=== PATIENT | male | born 1940 | race Caucasian/White ===

== ENCOUNTER 2017-02-04 23:34 | Inpatient (IN) | payer MEDICARE, BC ==
[~2017-02-04] VITALS: Ht 165.1 cm; Wt 70.0 kg
[~2017-02-04 23:34] MED LIST: ALLO100 PO; ALPR-138 PO; AMOX500T PO; CARV6.25 PO; COLC1TAB7 PO; COUM5TAB PO; FERR324T4 PO; FOSI10TA4 PO; FURO1TAB93 PO; GEMF600 PO; ISOS40TA4 PO; LANO0.2510 PO; PRAV40TA PO; SOTA120T PO
[2017-02-04 23:54] VITALS: BP 112/74; PULSE 75; RESP 28; TEMP 96; O2SAT 97
[2017-02-05] VITALS (10 sets, daily range): BP systolic 93–109; BP diastolic 55–62; PULSE 59–78; RESP 16–28; TEMP 96.4–98.9; O2SAT 93–99
[2017-02-05 00:21] LABS: AUTOMATED NEUTROPHIL # 8.9 TH/MM3 (1.8-7.7); BASOPHIL # 0.1 TH/MM3 (0-0.2); BASOPHIL % 0.5 % (0.0-2.0); EOSINOPHIL # 0.1 TH/MM3 (0-0.4); EOSINOPHIL % 1.2 % (0.0-4.0); HEMATOCRIT 47.8 % (39.0-51.0); HEMO FLAGS DIFF FINAL; LYMPH % 8.1 % (9.0-44.0); LYMPHOCYTE # 0.9 TH/MM3 (1.0-4.8); MEAN CELL VOLUME 92.5 FL (80.0-100.0); MEAN CORPUSCULAR HEMOGLOBIN 30.9 PG (27.0-34.0); MEAN CORPUSCULAR HGB CONC 33.5 % (32.0-36.0); MONO % 7.6 % (0.0-8.0); NEUT % 82.6 % (16.0-70.0); PLATELET COUNT 263 TH/MM3 (150-450); RED BLOOD COUNT 5.17 MIL/MM3 (4.50-5.90); RED CELL DISTRIBUTION WIDTH 17.4 % (11.6-17.2); WHITE BLOOD COUNT 10.8 TH/MM3 (4.0-11.0)
[2017-02-05 00:29] LABS: BLOOD, URINE NEG (NEG); COMMENT (UR) CULT NOT INDICATED; CULTURE IF INDICATED CULT NOT INDICATED; GLUCOSE,URINE NEG (NEG); HYALINE CAST, URINE 6 /lpf (RARE); KETONE, URINE NEG (NEG); NITRITE,URINE NEG (NEG); PH, URINE 5.5 (5.0-8.5); SQUAMOUS EPITHELIAL CELL URINE <1 /hpf (0-5); URINE COLOR YELLOW (YELLW/STRAW)
[2017-02-05 00:32] LABS: APTT (PATIENT) 42.9 SEC (24.3-30.1); INTERNATIONAL NORMALIZED RATIO 2.8 RATIO; PROTHROMBIN TIME - PATIENT 32.5 SEC (9.8-11.6)
[2017-02-05 00:34] LABS: BLOOD GAS BASE EXCESS -6.2 mmol/L (-2-2); BLOOD GAS CARBOXYHEMOGLOBIN 1.6 % (0-4); BLOOD GAS HCO3 18 mmol/L (22-26); BLOOD GAS METHEMOGLOBIN 0.5 % (0-2); BLOOD GAS O2 HGB SATURATION 95 % (90-100); BLOOD GAS OXYGEN CONTENT 21.2 Vol % (12.0-20.0); BLOOD GAS PCO2 33 mmHg (38-42); BLOOD GAS PO2 101 mmHG (61-120); BLOOD GAS TOTAL HGB 15.8 G/DL (12.0-16.0); CRITICAL VALUE NO; DRAW SITE RT RADIAL; LITER FLOW 4 L/M; NUMBER OF ARTERIAL PUNCTURES 1; OXYGEN DEVICE NASAL CANNULA; STAT YES; TEMP CORR TO 98.6; ULNAR PULSE PRESENT
[2017-02-05 00:41] LABS: ALKALINE PHOSPHATASE 101 U/L (45-117); CREATINE KINASE 131 U/L (39-308); TOTAL BILIRUBIN ADULT 0.6 MG/DL (0.2-1.0)
[2017-02-05 00:44] LABS: ALT (GPT) 15 U/L (12-78); ANION GAP 7 MEQ/L (5-15); AST (GOT) 31 U/L (15-37); BICARBONATE 23.2 MEQ/L (21.0-32.0); BLOOD UREA NITROGEN 34 MG/DL (7-18); CHLORIDE 98 MEQ/L (98-107); GLOMERULAR FILTRATION RATE 43 ML/MIN (>89); POTASSIUM 5.3 MEQ/L (3.5-5.1); SODIUM (NA) 128 MEQ/L (136-145)
--- NOTE | 2017-02-05 01:17 | RADRPT ---
EXAM DATE/TIME: 02/05/2017 01:01 [facility] COMPARISON: No previous studies available for comparison. INDICATIONS : Trauma; fall. RADIATION DOSE: 56.35 CTDIvol (mGy) MEDICAL HISTORY : Carcinoma, esophageal. SURGICAL HISTORY : Pacemaker. ENCOUNTER: Initial ACUITY: 1 day PAIN SCALE: 5/10 LOCATION: Bilateral cranial TECHNIQUE: Multiple contiguous axial images were obtained of the head. Using automated exposure control and adj ustment of the mA and/or kV according to patient size, radiation dose was kept as low as reasonably a chievable to obtain optimal diagnostic quality images. FINDINGS: There is atrophy and patchy periventricular white matter disease. No signs of acute infarct, hemorrha ge, or mass. Chronic left maxillary sinus mucosal disease with desiccated secretions. No fractures. CONCLUSION: No acute disease. Prashanth Ca MD on February 05, 2017 at 1:15 Board Certified Radiologist. This report was verified electronically.
--- NOTE | 2017-02-05 01:17 | RADRPT ---
EXAM DATE/TIME: 02/05/2017 00:30 [facility] COMPARISON: No previous studies available for comparison. INDICATIONS : Shortness of breath from a fall. MEDICAL HISTORY : None. SURGICAL HISTORY : Pacemaker. ENCOUNTER: Initial ACUITY: 1 day PAIN SCORE: Non-responsive. LOCATION: Bilateral chest FINDINGS: Cardiomegaly. Pacer/ICD device from a left subclavian transvenous approach noted. 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 The lungs are clear. Left atrial enlargement is suspected. CONCLUSION: No acute disease. Prashanth Ca MD on February 05, 2017 at 1:15 Board Certified Radiologist. This report was verified electronically.
--- NOTE | 2017-02-05 01:18 | RADRPT ---
EXAM DATE/TIME: 02/05/2017 00:33 [facility] COMPARISON: No previous studies available for comparison. INDICATIONS : Fall trauma. MEDICAL HISTORY : None. SURGICAL HISTORY : Pacemaker. ENCOUNTER: Initial ACUITY: 1 day PAIN SCORE: Non-responsive. LOCATION: Bilateral pelvis FINDINGS: Aortic and iliac artery calcifications are seen. A temperature probe overlies the rectum. No obvious fractures. CONCLUSION: No obvious fractures. Prashanth Ca MD on February 05, 2017 at 1:16 Board Certified Radiologist. This report was verified electronically.
--- NOTE | 2017-02-05 01:39 | RADRPT ---
EXAM DATE/TIME: 02/05/2017 01:01 [facility] COMPARISON: No previous studies available for comparison. INDICATIONS : Trauma; fall. RADIATION DOSE: 34.73 CTDIvol (mGy) MEDICAL HISTORY : Carcinoma, esophageal. SURGICAL HISTORY : Pacemaker. ENCOUNTER: Initial ACUITY: 1 day PAIN SCALE: 5/10 LOCATION: Bilateral neck TECHNIQUE: Volumetric scanning of the cervical spine was performed. Multiplanar reconstructions in the sagittal, coronal and oblique axial planes were performed. Using automated exposure control and adjustment o f the mA and/or kV according to patient size, radiation dose was kept as low as reasonably achievable to obtain optimal diagnostic quality images. FINDINGS: There is previous intervertebral fusion at C5-6 with severe disc space narrowing, endplate sclerosis and osteophytosis at C6-7. [id number] disc space narrowing at C7-T1 with 1.7 mm anterolisthes is of C7 on T1 noted. [id number] multilevel facet hypertrophic changes are seen. There is no ob lique fracture of the anterior inferior corner of the C4 vertebral body. Prevertebral soft tissue swe lling is seen. There is slight relative widening of C4-5 facet joints. At C3-4 a central disc protrus ion is noted abutting the cord with moderate canal narrowing. Severe left foraminal stenosis. C4-5 mi ld diffuse disc bulging with mild canal narrowing. At C5-6 moderate canal stenosis. Uncovertebral hyp ertrophy and severe bilateral foraminal narrowing. CONCLUSION: There is an acute teardrop fracture of the anterior-inferior corner of the C4 vertebral body. There i s no loss of vertebral body height. There is questionable relative widening of the C4-5 facet joints right greater than left. Associated prevertebral soft tissue swelling. Prashanth Ca MD on February 05, 2017 at 1:29 Board Certified Radiologist. This report was verified electronically.
--- NOTE | 2017-02-05 03:09 | PD ---
HPI Chief Complaint: Fall Time Seen by Provider: 23:40 Travel History International Travel<30 days: No Contact w/Intl Traveler<30days: No Traveled to known affect area: No History of Present Illness HPI 77 years old male was brought in by EMS after a fall from home. Patient was found at home on the floor lethargic. C-collar was applied to the neck and patient was transported to the ED for evaluation. Patient had O2 saturation at the scene was in the 80s. Unable to get information from the patient. Patient has history of CAD status post AICD placement. Patient has history hypertension and dyslipidemia. Patient has history of anxiety and gout. PFSH Past Medical History Anxiety: Yes Heart Rhythm Problems: Yes (PACER/AICD) High Cholesterol: Yes Coronary Artery Disease: Yes Diminished Hearing: No Gout: Yes Hypertension: Yes Immunizations Current: Yes Past Surgical History Abdominal Surgery: Yes (SURGERY ON HIS ESPOPHAGUS) AICD: Yes (UNKNOWN TOLL OPERATOR) Pacemaker: Yes Social History Alcohol Use: Yes (OCCASSIONAL) Tobacco Use: No Substance Use: No Allergies-Medications (Allergen,Severity, Reaction): Coded Allergies: Codeine (Verified Allergy, Severe, 08/11/09) Reported Meds & Prescriptions Reported Meds & Active Scripts Active Active Prescriptions or Reported Medications Unobtainable Review of Systems General / Constitutional: No: Fever Eyes: No: Visual changes HENT: No: Headaches Cardiovascular: No: Chest Pain or Discomfort Respiratory: No: Shortness of Breath Gastrointestinal: No: Abdominal Pain Genitourinary: No: Dysuria Musculoskeletal: No: Pain Skin: No Rash Neurologic: No: Weakness Psychiatric: No: Depression Endocrine: No: Polydipsia Hematologic/Lymphatic: No: Easy Bruising Physical Exam Narrative GENERAL: Well-nourished, well-developed patient. SKIN: Warm and dry. HEAD: Normocephalic. Patient has abrasion across the forehead about 6 cm in length. EYES: No scleral icterus. No injection or drainage. Pupils 2 mm equal reactive. NECK: Supple, trachea midline. No JVD or lymphadenopathy. CARDIOVASCULAR: Regular rate and rhythm without murmurs, gallops, or rubs. RESPIRATORY: Breath sounds equal bilaterally. No accessory muscle use. GASTROINTESTINAL: Abdomen soft, non-tender, nondistended. MUSCULOSKELETAL: No cyanosis, or edema. BACK: Nontender without obvious deformity. No CVA tenderness. Neurologic exam: Patient is lethargic. Patient answered questions with yes or no answers. Patient moves all extremity minimally. No obvious focal neurological deficit. Data Data Last Documented VS Vital Signs Date Time Temp Pulse Resp B/P Pulse Ox O2 Delivery O2 Flow Rate FiO2 02/05/17 00:30 96.4 74 28 102/55 99 Nasal Cannula 4 Orders Electrocardiogram (02/04/17 23:41) Complete Blood Count With Diff (02/04/17 23:41) Comprehensive Metabolic Panel (02/04/17 23:41) Creatine Kinase (Cpk) (02/04/17 23:41) Troponin I (02/04/17 23:41) B-Type Natriuretic Peptide (02/04/17 23:41) Prothrombin Time / Inr (Pt) (02/04/17 23:41) Act Partial Throm Time (Ptt) (02/04/17 23:41) Arterial Blood Gas (Abg) (02/04/17 23:41) Blood Culture (02/04/17 23:41) Urinalysis - C+S If Indicated (02/04/17 23:41) Chest, Single Ap (02/04/17 23:41) Ct Brain W/O Iv Contrast(Rout) (02/04/17 23:41) Pelvis, Ap Only (Routine) (02/04/17 23:41) Iv Access Insert/Monitor (02/04/17 23:41) Ecg Monitoring (02/04/17 23:41) Oximetry (02/04/17 23:41) Urinary Catheter Insert/Apply (02/04/17 23:41) Ct Cerv Spine W/O Contrast (02/04/17 23:41) Lactic Acid (02/04/17 23:43) Labs Laboratory Tests Test 02/04/17 02/04/17 02/05/17 23:46 23:59 00:24 White Blood Count 10.8 TH/MM3 Red Blood Count 5.17 MIL/MM3 Hemoglobin 16.0 GM/DL Hematocrit 47.8 % Mean Corpuscular Volume 92.5 FL Mean Corpuscular Hemoglobin 30.9 PG Mean Corpuscular Hemoglobin 33.5 % Concent Red Cell Distribution Width 17.4 % Platelet Count 263 TH/MM3 Mean Platelet Volume 9.2 FL Neutrophils (%) (Auto) 82.6 % Lymphocytes (%) (Auto) 8.1 % Monocytes (%) (Auto) 7.6 % Eosinophils (%) (Auto) 1.2 % Basophils (%) (Auto) 0.5 % Neutrophils # (Auto) 8.9 TH/MM3 Lymphocytes # (Auto) 0.9 TH/MM3 Monocytes # (Auto) 0.8 TH/MM3 Eosinophils # (Auto) 0.1 TH/MM3 Basophils # (Auto) 0.1 TH/MM3 CBC Comment DIFF FINAL Differential Comment Prothrombin Time 32.5 SEC Prothromb Time International 2.8 RATIO Ratio Activated Partial 42.9 SEC Thromboplast Time Sodium Level 128 MEQ/L Potassium Level 5.3 MEQ/L Chloride Level 98 MEQ/L Carbon Dioxide Level 23.2 MEQ/L Anion Gap 7 MEQ/L Blood Urea Nitrogen 34 MG/DL Creatinine 1.56 MG/DL Estimat Glomerular Filtration 43 ML/MIN Rate Random Glucose 141 MG/DL Lactic Acid Level 1.3 mmol/L Calcium Level 8.1 MG/DL Total Bilirubin 0.6 MG/DL Aspartate Amino Transf 31 U/L (AST/SGOT) Alanine Aminotransferase 15 U/L (ALT/SGPT) Alkaline Phosphatase 101 U/L Total Creatine Kinase 131 U/L Troponin I 0.03 NG/ML B-Type Natriuretic Peptide 690 PG/ML Total Protein 5.0 GM/DL Albumin 1.8 GM/DL Urine Color YELLOW Urine Turbidity CLEAR Urine pH 5.5 Urine Specific [place] 1.016 Urine Protein NEG mg/dL Urine Glucose (UA) NEG mg/dL Urine Ketones NEG mg/dL Urine Occult Blood NEG Urine Nitrite NEG Urine Bilirubin NEG Urine Urobilinogen 2.0 MG/DL Urine Leukocyte Esterase NEG Urine RBC 1 /hpf Urine WBC LESS THAN 1 /hpf Urine Squamous Epithelial <1 /hpf Cells Urine Hyaline Casts 6 /lpf Microscopic Urinalysis Comment CULT NOT INDICATED Blood Gas Puncture Site RT RADIAL Blood Gas Patient Temperature 98.6 Blood Gas HCO3 18 mmol/L Blood Gas Base Excess -6.2 mmol/L Blood Gas Oxygen Saturation 95 % Arterial Blood pH 7.36 Arterial Blood Partial 33 mmHg Pressure CO2 Arterial Blood Partial 101 mmHG Pressure O2 Arterial Blood Oxygen Content 21.2 Vol % Arterial Blood 1.6 % Carboxyhemoglobin Arterial Blood Methemoglobin 0.5 % Blood Gas Hemoglobin 15.8 G/DL Oxygen Delivery Device NASAL CANNULA Blood Gas Liter Flow 4 L/M MDM Medical Decision Making Medical Screen Exam Complete: Yes Emergency Medical Condition: Yes Interpretation(s) Last Impressions Pelvis X-Ray 02/04/172340 Signed Impressions: Service Date/Time: January 00:33 - CONCLUSION: No obvious fractures. Prashanth Ca MD Head CT 02/04/172340 Signed Impressions: Service Date/Time: January 01:01 - CONCLUSION: No acute disease. Prashanth Ca MD Chest X-Ray 02/04/172340 Signed Impressions: Service Date/Time: January 00:30 - CONCLUSION: No acute disease. Prashanth Ca MD Cervical Spine CT 02/04/172340 Signed Impressions: Service Date/Time: January 01:01 - CONCLUSION: There is an acute teardrop fracture of the anterior-inferior corner of the C4 vertebral body. There is no loss of vertebral body height. There is questionable relative widening of the C4-5 facet joints right greater than left. Associated prevertebral soft tissue swelling. Prashanth Ca MD 3 AM. CBC within normal limit. Sodium 128. Potassium 5.3. BUN 34. Creatinine 1.56. GFR 43. At the acid 1.3. Calcium 8.1. BNP 690. INR 2.8. UA is negative. Differential Diagnosis Differential diagnosis including abrasion, closed head injury, intracranial hemorrhage, electrolyte imbalance, dehydration, TIA, CVA, sepsis. Narrative Course 77 years old male was brought in by EMS after a fall from home. I spoke with Dr. Owens and Dr. Crocker. Patient will be admitted to Dr. Owens and consult Dr. Crocker. Diagnosis Primary Impression: Fracture of cervical vertebra without spinal cord injury Qualified Code: S12.9XXA - Fracture of cervical vertebra without spinal cord injury, initial encounter Additional Impression: Forehead abrasion Qualified Code: S00.81XA - Forehead abrasion, initial encounter Admitting Information Admitting Physician Requests: Admit Scripts Unable to Obtain Active Prescriptions or Reported Meds Bravo Jama MD Feb 05, 2017 03:09
[2017-02-05] MEDS ORDERED: ONDANSETRON HCL 4 MG/2 ML VIAL IV PRN ×2 (03:15→08:45)
[2017-02-05] MEDS ORDERED: SODIUM CHLORIDE 0.9% FLUSH 10 ML FLUSH IVF PRN (03:15)
--- NOTE | 2017-02-05 07:54 | MH ---
cc: MAZIN SAVAGE MD DATE OF ADMISSION 02/05/2017 ADMITTING PHYSICIAN Mazin Savage MD, Trauma Surgeon ADMITTING DIAGNOSIS Fall at home, fracture of C4 without neurogenic shock. HISTORY OF PRESENT DISEASE This is a 77-year-old male who was brought by EMS. He fell on the floor apparently. He came in a C-collar seen by the emergency room physician and I was called upon completion of the workup. PAST MEDICAL HISTORY 1. Coronary artery disease 2. Hypertension 3. Supraventricular arrhythmias or fissure, the patient had placement of a defibrillator. PAST SURGICAL HISTORY 1. Defibrillator placement 2. Some sort of esophageal surgery, I am not sure what, possibly distal esophagus. SOCIAL HISTORY The patient does not smoke and drinks socially. MEDICATIONS I do not have a list of medications and the patient does not know what he is on. PHYSICAL EXAM This is a 77-year-old male in no acute distress. HEAD, EYES, EARS, NOSE, AND THROAT: Normocephalic. Trauma to the head consistent with a 3 inches bruise over the forehead with abrasions where he fell. There was some bleeding from the nose but this was apparently controlled before the patient got here. Pupils equally reactive. Extraocular muscles intact. NECK: The patient has a supple neck with some degree of stiffness consistent with the age. No masses are noted and actually the patient is not tender on palpation of the neck. CHEST: Bilateral breath sounds. HEART: Regular rhythm, previously noted pacemaker/defibrillator noted in left chest. ABDOMEN: Soft, no rebound, guarding or masses. EXTREMITIES: The patient has bilateral femoral pulses, bilateral dorsalis pedis pulses by palpation. Popliteal by Doppler. NEUROLOGIC: Grossly the patient is intact. C2-C12 are normal and he is awake and alert, slightly slow to answer, seems to be somewhat anxious. IMPRESSION A 77-year-old male was severe degenerative disease of the spine and superior teardrop fracture of C4. This appeared to be mostly chronic prevertebral swelling according to the radiologist. The patient will be admitted to floor for observation. Neurosurgery is consulted. Mazin ALLISON/MAGDA /7:28 AM 7:40 AM
[2017-02-05] MEDS ORDERED: SODIUM CHLORIDE 0.9% FLUSH 10 ML FLUSH IV FLUSH PRN (08:45)
[2017-02-05] MEDS ORDERED: ACETAMINOPHEN 325 MG TAB PO PRN (08:45)
[2017-02-05] MEDS ORDERED: ENALAPRILAT 1.25 MG/ML VIAL IV PRN (08:45)
--- NOTE | 2017-02-05 08:59 | PD.CONS ---
[facility] Service Neurosurg Consult Requested By Trauma surgeon Reason for Consult cervical fracture Primary Care Physician Vikki Hatfield MD History of Present Illness This is a 77-year-old male with history of Coronary artery disease, arterial Hypertension, Supraventricular arrhythmias status post placement of a defibrillator who was brought by to [facility] by EMS. Apparently he fell on the floor and developed neck pain. Mo LOC. No seizure. No tongue bitting, No incontinence of stool or urine He came in a C-collar. Moving all 4 extreities. No sensory loss. Severe neck pain. CT showed a teardrop fracture. Neurosurgical consultation was requested. Review of Systems Constitutional: DENIES: Diaphoretic episodes, Fatigue, Fever, Weight gain, Weight loss, Chills, Dizziness, Change in appetite, Night Sweats Endocrine: DENIES: Heat/cold intolerance, Polydipsia, Polyuria, Polyphagia Eyes: DENIES: Blurred vision, Diplopia, Eye inflammation, Eye pain, Vision loss , Photosensitivity, Double Vision Ears, nose, mouth, throat: DENIES: Tinnitus, Hearing loss, Vertigo, Nasal discharge, Oral lesions, Throat pain, Hoarseness, Ear Pain, Running Nose, Epistaxis, Sinus Pain, Toothache, Odynophagia Respiratory: DENIES: Apneas, Cough, Snoring, Wheezing, Hemoptysis, Sputum production, Shortness of breath Cardiovascular: DENIES: Chest pain, Palpitations, Syncope, Dyspnea on Exertion , PND, Lower Extremity Edema, Orthopnea, Claudication Gastrointestinal: DENIES: Abdominal pain, Black stools, Bloody stools, Constipation, Diarrhea, Nausea, Vomiting, Difficulty Swallowing, Anorexia Genitourinary: DENIES: Sexual dysfunction, Urinary frequency, Urinary incontinence, Urgency, Hematuria, Dysuria, Nocturia, Penile Discharge, Testicular Pain, Testicular Swelling Musculoskeletal: COMPLAINS OF: Neck pain, DENIES: Joint pain, Muscle aches, Stiffness, Joint Swelling, Back pain Integumentary: DENIES: Abnormal pigmentation, Nail changes, Pruritus, Rash Hematologic/lymphatic: DENIES: Bruising, Lymphadenopathy Immunologic/allergic: DENIES: Eczema, Urticaria Neurologic: DENIES: Abnormal gait, Headache, Localized weakness, Paresthesias, Seizures, Speech Problems, Tremor, Poor Balance Psychiatric: DENIES: Anxiety, Confusion, Mood changes, Depression, Hallucinations, Agitation, Suicidal Ideation, Homicidal Ideation, Delusions Past Family Social History Allergies: Coded Allergies: Codeine (Verified Allergy, Severe, RASH, 02/05/17) MRI PRECAUTION (Verified Adverse Reaction, Unknown, NON COMPATIBLE ICD LRS 02/05/17, 02/05/17) Past Medical History 1. Coronary artery disease 2. Hypertension 3. Supraventricular arrhythmias Past Surgical History 1. Defibrillator placement 2. esophageal surgery Active Ordered Medications Current Medications Ondansetron HCl (Zofran Inj) 4 mg Q6H PRN IV NAUSEA OR VOMITING; Start at 03:15; Stop 02/05/17 at 09:08; Status DC Acetaminophen (Tylenol) 650 mg Q4H PRN PO Headache; Start 02/05/17 at 03:15 Sodium Chloride (NS Flush) 2 ml BID IV FLUSH Last administered on 02/05/17 09: 00; Start 02/05/17 at 09:00 Sodium Chloride (NS Flush) 2 ml UNSCH PRN IVF FLUSH AFTER USING IV ACCESS; Start 02/05/17 at 03:15 Senna/Docusate Sodium (Ashley-Colace) 1 tab BID PO Last administered on 10:36; Start 02/05/17 at 09:00 Sodium Chloride (NS Flush) 2 ml UNSCH PRN IV FLUSH FLUSH AFTER USING IV ACCESS ; Start 02/05/17 at 08:45; Stop 02/05/17 at 09:08; Status DC Acetaminophen (Tylenol) 650 mg Q6H PRN PO Pain/ TEMP > 102 F; Start 02/05/17 at 08:45 Enalaprilat (Vasotec Inj) 1.25 mg Q8H PRN IV SBP>180, DBP>95; Start 02/05/17 at 08:45 Ondansetron HCl (Zofran Inj) 4 mg Q6H PRN IV NAUSEA OR VOMITING; Start at 08:45 Pantoprazole Sodium (Protonix Inj) 40 mg Q24H IVP Last administered on 10:36; Start 02/05/17 at 08:45 Bacitracin (Baciguent Oint) 1 applic BID TOP Last administered on 02/05/17t 10: 37; Start 02/05/17 at 09:00 Sodium Polystyrene Sulfonate (Kayexalate Liq) 15 gm ONCE ONCE PO Last administered on 02/05/17t 12:27; Start 02/05/17 at 11:30; Stop 02/05/17 at 11:35 ; Status DC Aspirin (Aspirin Chew) 81 mg DAILY CHEW ; Start 02/06/17 at 09:00 Family History noncontributory Social History The patient does not smoke and drinks socially. No illicit drug use Physical Exam Vital Signs Vital Signs Date Time Temp Pulse Resp B/P Pulse Ox O2 Delivery O2 Flow Rate FiO2 02/05/17 07:48 Room Air 4 02/05/17 07:48 96 Room Air 02/05/17 07:48 75 16 93/55 96 Room Air 02/05/17 02:00 97.2 76 28 97/58 99 Nasal Cannula 4 02/05/17 00:30 96.4 74 28 102/55 99 Nasal Cannula 4 02/04/17 23:54 20 98 Nasal Cannula 4 02/04/17 23:54 96.0 75 28 112/74 97 Nasal Cannula 4 Physical Exam The patient is alert, awake and oriented to time, place and person. Speech is fluent. Higher cognitive functions are normal. Cranial nerve examination demonstrates the pupils to be equal, round, and reactive to light. Extra-ocular movements are intact. Facial motor and sensory function are normal and symmetrical. Gross hearing is intact, bilaterally. The uvula is midline and elevates symmetrically with the soft palate. Sternocleidomastoid and trapezius muscles have normal and symmetrical strength. Other cranial nerves are intact. Cervical spine has been brace with Tribe J cervical collar. Muscle testing reveals normal bulk and tone overall without rigidity, spasticity , fasciculations, or atrophy. Muscle strength is 5/5 in all muscle groups of both upper extremities including deltoid, biceps, triceps, brachioradialis, wrist extension and senior backup administrator. In the lower extremities, strength is 5/5 in both iliopsoas, quadriceps, hamstrings, plantar flexion, dorsiflexion, and extensor hallicus longus. Sensory examination is intact to light touch and sharp/dull discrimination in both the upper and lower extremities, symmetrically. Deep tendon reflexes are 2+ and symmetrical in the biceps, triceps, and brachioradialis, bilaterally, in the upper extremities. In the lower extremities , the patellar and Achilles are 2+, bilaterally. There is a bilateral plantar flexion response. Hoffmanns sign is negative. There is no clonus or other abnormal reflexes noted. Cerebellar examination is intact to [id number] test, rapid rhythmic alternating motion. There is no dysmetria, dysdiadochokinesia, truncal ataxia, or tremor. Laboratory Laboratory Tests Test 02/04/17 02/04/17 02/05/17 23:46 23:59 00:24 White Blood Count 10.8 Red Blood Count 5.17 Hemoglobin 16.0 Hematocrit 47.8 Mean Corpuscular Volume 92.5 Mean Corpuscular Hemoglobin 30.9 Mean Corpuscular Hemoglobin 33.5 Concent Red Cell Distribution Width 17.4 Platelet Count 263 Mean Platelet Volume 9.2 Neutrophils (%) (Auto) 82.6 Lymphocytes (%) (Auto) 8.1 Monocytes (%) (Auto) 7.6 Eosinophils (%) (Auto) 1.2 Basophils (%) (Auto) 0.5 Neutrophils # (Auto) 8.9 Lymphocytes # (Auto) 0.9 Monocytes # (Auto) 0.8 Eosinophils # (Auto) 0.1 Basophils # (Auto) 0.1 CBC Comment DIFF FINAL Differential Comment Prothrombin Time 32.5 Prothromb Time International 2.8 Ratio Activated Partial 42.9 Thromboplast Time Sodium Level 128 Potassium Level 5.3 Chloride Level 98 Carbon Dioxide Level 23.2 Anion Gap 7 Blood Urea Nitrogen 34 Creatinine 1.56 Estimat Glomerular Filtration 43 Rate Random Glucose 141 Lactic Acid Level 1.3 Calcium Level 8.1 Total Bilirubin 0.6 Aspartate Amino Transf 31 (AST/SGOT) Alanine Aminotransferase 15 (ALT/SGPT) Alkaline Phosphatase 101 Total Creatine Kinase 131 Troponin I 0.03 B-Type Natriuretic Peptide 690 Total Protein 5.0 Albumin 1.8 Urine Color YELLOW Urine Turbidity CLEAR Urine pH 5.5 Urine Specific [place] 1.016 Urine Protein NEG Urine Glucose (UA) NEG Urine Ketones NEG Urine Occult Blood NEG Urine Nitrite NEG Urine Bilirubin NEG Urine Urobilinogen 2.0 Urine Leukocyte Esterase NEG Urine RBC 1 Urine WBC LESS THAN 1 Urine Squamous Epithelial <1 Cells Urine Hyaline Casts 6 Microscopic Urinalysis Comment CULT NOT INDICATED Blood Gas Puncture Site RT RADIAL Blood Gas Patient Temperature 98.6 Blood Gas HCO3 18 Blood Gas Base Excess -6.2 Blood Gas Oxygen Saturation 95 Arterial Blood pH 7.36 Arterial Blood Partial 33 Pressure CO2 Arterial Blood Partial 101 Pressure O2 Arterial Blood Oxygen Content 21.2 Arterial Blood 1.6 Carboxyhemoglobin Arterial Blood Methemoglobin 0.5 Blood Gas Hemoglobin 15.8 Oxygen Delivery Device NASAL CANNULA Blood Gas Liter Flow 4 Date/Time Procedure Status Source Growth 02/04/17 23:46 Aerobic Blood Culture Received Blood Peripheral Pending 02/04/17 23:46 Anaerobic Blood Culture Received Blood Peripheral Pending Result Diagram: 02/04/17234502/04/172345 Imaging Last Impressions Pelvis X-Ray 02/04/172340 Signed Impressions: Service Date/Time: January 00:33 - CONCLUSION: No obvious fractures. Prashanth Ca MD Head CT 02/04/172340 Signed Impressions: Service Date/Time: January 01:01 - CONCLUSION: No acute disease. Prashanth Ca MD Chest X-Ray 02/04/172340 Signed Impressions: Service Date/Time: January 00:30 - CONCLUSION: No acute disease. Prashanth Ca MD Cervical Spine CT 02/04/172340 Signed Impressions: Service Date/Time: January 01:01 - CONCLUSION: There is an acute teardrop fracture of the anterior-inferior corner of the C4 vertebral body. There is no loss of vertebral body height. There is questionable relative widening of the C4-5 facet joints right greater than left. Associated prevertebral soft tissue swelling. Prashanth Ca MD Attending Statement I have reviewed his clinical and further studies. neuro checks in a serial fashion. Bracing of the cervical spine with a Tribe J collar. Ideally he should undergo an MRI urticaria spine but he is unable to undergo an MRI due to the presence of a pacemaker. Recommend to obtain flexion-extension x-rays of the cervical spine Respiratory. pulmonary toilette, nasotracheal suction, and breathing treatments with nebulizers. PT and OT eval Nutrition. Oral diet Renal. monitor closely urine output, BUN and creatinine Endocrine. Monitor serial Acu checks and SSI for tight control ID monitor for signs of infection Protonix for stress ulcer prophylaxis Marcus hosbismark and SCD's for DVT prophylaxis Liam Crocker MD Feb 05, 2017 08:59
[2017-02-05] MEDS: SODIUM CHLORIDE 0.9% FLUSH 10 ML FLUSH IV FLUSH SCH ×2 (09:00→20:35)
[2017-02-05] MEDS: BACITRACIN TOP OINT 15 GM TUBE TOP SCH ×2 (09:00→10:37)
[2017-02-05 10:05] LABS: AUTOMATED NEUTROPHIL # 8.5 TH/MM3 (1.8-7.7); BASOPHIL # 0.1 TH/MM3 (0-0.2); BASOPHIL % 0.6 % (0.0-2.0); EOSINOPHIL # 0.1 TH/MM3 (0-0.4); EOSINOPHIL % 0.6 % (0.0-4.0); HEMATOCRIT 44.2 % (39.0-51.0); HEMO FLAGS DIFF FINAL; LYMPH % 9.1 % (9.0-44.0); LYMPHOCYTE # 0.9 TH/MM3 (1.0-4.8); MEAN CELL VOLUME 92.5 FL (80.0-100.0); MEAN CORPUSCULAR HEMOGLOBIN 30.6 PG (27.0-34.0); MEAN CORPUSCULAR HGB CONC 33.1 % (32.0-36.0); NEUT % 81.7 % (16.0-70.0); PLATELET COUNT 228 TH/MM3 (150-450); RED BLOOD COUNT 4.78 MIL/MM3 (4.50-5.90); RED CELL DISTRIBUTION WIDTH 16.8 % (11.6-17.2); WHITE BLOOD COUNT 10.4 TH/MM3 (4.0-11.0)
[2017-02-05] MEDS: PANTOPRAZOLE SODIUM 40 MG VIAL IVP SCH ×2 (10:05→10:36)
[2017-02-05] MEDS: DOCUSATE SODIUM 50 MG/SENNA 8.6 MG TAB PO SCH ×2 (10:05→10:36)
[2017-02-05 10:40] LABS: ANION GAP 7 MEQ/L (5-15); AST (GOT) 26 U/L (15-37); BICARBONATE 24.1 MEQ/L (21.0-32.0); BLOOD UREA NITROGEN 36 MG/DL (7-18); CHLORIDE 98 MEQ/L (98-107); GLOMERULAR FILTRATION RATE 46 ML/MIN (>89); POTASSIUM 5.4 MEQ/L (3.5-5.1); SODIUM (NA) 129 MEQ/L (136-145)
[2017-02-05 10:45] LABS: ALKALINE PHOSPHATASE 103 U/L (45-117); ALT (GPT) 14 U/L (12-78); CREATINE KINASE 105 U/L (39-308); TOTAL BILIRUBIN ADULT 0.7 MG/DL (0.2-1.0)
[2017-02-05 10:57] LABS: CKMB 2.3 NG/ML (0.5-3.6)
[2017-02-05] MEDS ORDERED: SODIUM POLYSTYRENE SULFONATE SUSP 15 GM/60 ML CUP PO ONE (11:30)
[2017-02-05 16:07] LABS: CREATINE KINASE 150 U/L (39-308)
[2017-02-05 16:20] LABS: CKMB 2.3 NG/ML (0.5-3.6)
[2017-02-05] MEDS ORDERED: ALLO300T2 PO (19:01)
[2017-02-05] MEDS ORDERED: WARF-18 PO ×2 (19:08)
[2017-02-05] MEDS ORDERED: SOTA120T PO (19:08)
[2017-02-05] MEDS ORDERED: FOSI10TA PO (19:13)
[2017-02-05] MEDS ORDERED: GEMF600 PO (19:13)
[2017-02-05] MEDS ORDERED: DIGO0.12 PO (19:13)
[2017-02-05] MEDS ORDERED: PRAV40TA2 PO (19:13)
[2017-02-05] MEDS ORDERED: DIGO0.25 PO (19:13)
[2017-02-05] MEDS ORDERED: COLC1TAB15 PO (19:17)
[2017-02-05] MEDS ORDERED: ALPR.25 PO (19:17)
[2017-02-05] MEDS ORDERED: CARV12.52 PO (19:21)
[2017-02-05] MEDS ORDERED: VITA200012 PO (19:24)
--- NOTE | 2017-02-05 21:21 | EKG ---
Date Performed: 02/04/2017 Time Performed: 23:48:54 PTAGE: 77 years EKG: Paced rhythm. No further analysis. Since PREVIOUS TRACING , no significant change noted PREVIOUS TRACIN07/04/2009 13.10 DOCTOR: Raphael Burleson Interpretating Date/Time 02/05/2017 21:20:56
--- NOTE | 2017-02-05 23:16 | MB ---
cc: MATEUS CHEW DO DATE OF CONSULTATION 02/05/17 REASON FOR CONSULTATION Possible syncope. HISTORY OF PRESENT ILLNESS Koby Mike is a 77-year-old male who presented to [facility] emergency room on February 04, 2017 due to a fall. The patient is a difficult historian and does not remember much from the episode. He states that he was getting up out of bed to use the restroom, walked 8-10 feet and then got lightheaded and fell down. Unsure if he lost consciousness. He was found on the floor lethargic. On arrival, a C-collar was placed and he was transported to the emergency room for evaluation. On the scene, he was found to have an oxygen saturation in the 80s. On seeing him today, he slightly remembers the episode and that he got lightheaded but denied chest pain or shortness of breath with the episode. PAST MEDICAL HISTORY 1. Coronary artery disease. 2. Hypertension 3. Dyslipidemia. 4. Congestive heart failure. 5. Atrial flutter. 6. Anxiety. PAST SURGICAL HISTORY 1. Placement of a DIIMEtronic Insync AICD (model number 7305, serial number [id number], March 24, 2005). 2. Previous esophageal surgery. ALLERGIES CODEINE MEDICATIONS 1. Lisinopril 10 mg daily 2. Coumadin 2.5 mg Thursday, Thursday, Thursday, , Thursday, 1.25 mg Thursday, Thursday. 3. Allopurinol 300 mg with dinner. 4. Colchicine 0.3 mg every other day 5. Xanax 0.25 mg b.i.d. 6. Coreg 12.5 mg b.i.d. 7. Sotalol 120 mg b.i.d. 8. Digoxin 0.25 mg Thursday, Thursday, , Thursday, Thursday, 0.125 mg Thursday. 9. Lopid 300 mg b.i.d. 10. Pravastatin 40 mg daily. SOCIAL HISTORY Occasional alcohol use. Denies tobacco or drug abuse. FAMILY HISTORY Denies premature coronary artery disease or sudden cardiac within the family. REVIEW OF SYSTEMS 14-systems were reviewed including osteopathic. Pertinent positives and negatives above otherwise negative. PHYSICAL EXAMINATION VITAL SIGNS: Temperature 98.0, heart rate 75, blood pressure 100/59, respirations 18, pulse ox 95% on 2 liters. GENERAL: The patient appears somewhat cachectic and chronically ill. He is in no acute distress. Alert, awake and oriented. HEENT: Extraocular muscles intact. Mucous membranes moist. He has a 3 inch bruise over his forehead with abrasions. NECK: Supple. No JVD at 45 degrees. No carotid bruits heard bilaterally. Carotid upstroke is brisk in nature. HEART: Regular rate and rhythm. Positive first and second heart sounds with a 1/6 crescendo-decrescendo murmur to the right sternal border. Defibrillator noted in the left chest wall. ABDOMEN: Soft, nontender, nondistended. No organomegaly noted. EXTREMITIES: 1+ pitting edema bilaterally. NEUROLOGIC: Grossly intact with no focal deficit deficits. SKIN: Warm, dry and intact. LABORATORY FINDINGS Hemoglobin 14.6, hematocrit 44.2, platelets 16.8. INR 2.8, sodium 129, potassium 5.4, BUN 36, creatinine 1.49, troponin negative x3. BNP 690. CT of the cervical spine - acute tear drop fracture of the anterior inferior corner of the C4 vertebral body with previous prevertebral soft tissue swelling. CARDIOLOGY STUDIES Electrocardiogram (February 05, 2017 at 12:47) ventricular paced. IMPRESSION 1. Fall versus syncope. 2. Fracture of cervical vertebra 3. Dehydration with acute kidney injury. 4. Therapeutic coagulopathy secondary to Coumadin therapy. 5. Hyponatremia. 6. Hyperkalemia 7. History of coronary artery disease. 8. History of congestive heart failure with ICD placement. 9. History of hypertension 10. History of dyslipidemia. 11. Elevated BNP with no acute signs of congestive heart failure. RECOMMENDATIONS 1. It is difficult to determine whether Mr. Mike had a fall versus syncope due to his poor history. His fall may be due to orthostatic hypotension, especially in an elderly gentleman who changes orthostatic positions from getting up out of bed with mild dehydration. 2. This may be also a component of his hyponatremia. 3. We will attempt to decrease his current antihypertensive therapies as he has had some blood pressures which are relatively low. 4. We will have his Medtronic AICD interrogated for possible events. 5. 2-D echo will be ordered to look at his overall left ventricular function, cardiac structure and possible valvopathies. 6. As far as Coumadin therapy, it is difficult to assess at this time with his recent fall. We will have physical therapy work with him and, if deemed that he is a significant fall risk, consideration would be made for ____ anticoagulation therapy due to possible increased risk of falls leading to hemorrhage. Further recommendations will be made based on the hospital course. Thank you for allowing me to see Koby Mike. If there are any questions, please do not hesitate to call. Mateus Chew DO VGP/SA /8:55 PM /10:51 PM
--- NOTE | 2017-02-05 23:57 | PD.CONS ---
[facility] By [facility] Care Physician Vikki Hatfield MD Diagnoses: History of Present Illness 77-year-old male with a history of chronic kidney disease stage III, hypertension, CAD, CHF, atrial flutter on warfarin, digoxin, Status post defibrillator placement, chronic abdominal ascites which is drained every few days, who presents to the ER after being found down. Patient reports that he got up quickly to go use the restroom, and blacked out, waking up shortly thereafter. He is felt to have cervical fracture, and has collar in place. He has received pain medications in the ER, and is quite somnolent, however wakes for exam. He reports feeling all right. Reports pain is controlled. Denies any chest pain or shortness of breath. He denies having any fevers, chills, nausea, vomiting, diarrhea. He reports previously feeling fine. Review of Systems performed and negative except for HPI and past medical history. Past Family Social History Allergies: Coded Allergies: Codeine (Verified Allergy, Severe, RASH, 02/05/17) MRI PRECAUTION (Verified Adverse Reaction, Unknown, NON COMPATIBLE ICD LRS 02/05/17, 02/05/17) Past Medical History Coronary artery disease Hypertension Hyperlipidemia Congestive heart failure Atrial flutter Anxiety Gout Past Surgical History Hernia surgery History of esophageal surgery Placement of AICD Reported Medications Fosinopril 10 mg by mouth daily Warfarin 2.5 mg daily Allopurinol 300 mg by mouth daily Colchicine 0.3 mg every other day Xanax 0.25 mg by mouth twice a day Carvedilol 12.5 mg by mouth twice a day Sotalol 120 mg by mouth twice a day Digoxin 0.25 mg by mouth daily, except for Thursday and Thursday Digoxin 0.125 mg on Thursday. Gemfibrozil 6 or milligrams twice daily Pravastatin 40 mg daily Vitamin D Family History Mother passed way from cancer. Father from "old age" Social History Nonsmoker. Rare alcohol use.. Denies illicit drugs Physical Exam Vital Signs Vital Signs Date Time Temp Pulse Resp B/P Pulse Ox O2 Delivery O2 Flow Rate FiO2 02/05/17 21:45 98.9 74 20 95/58 93 02/05/17 20:15 75 18 107/58 96 02/05/17 19:23 75 18 107/58 94 Room Air 02/05/17 16:07 98.0 59 18 98/60 Nasal Cannula 6 02/05/17 14:14 93 Nasal Cannula 3.00 02/05/17 14:11 97.8 75 18 100/59 95 Nasal Cannula 2 02/05/17 12:53 96 2 02/05/17 12:53 78 16 109/62 Nasal Cannula 2 02/05/17 12:53 Nasal Cannula 2 02/05/17 07:48 Room Air 4 02/05/17 07:48 96 Room Air 02/05/17 07:48 75 16 93/55 96 Room Air 02/05/17 02:00 97.2 76 28 97/58 99 Nasal Cannula 4 02/05/17 00:30 96.4 74 28 102/55 99 Nasal Cannula 4 Physical Exam GENERAL: 77-year-old male lying in bed. Sleeping, wakes up for exam. He is alert and oriented. SKIN: No rashes, ecchymoses or lesions. Cool and dry. HEAD: Atraumatic. Normocephalic. No temporal or scalp tenderness. EYES: Pupils equal round and reactive. Extraocular motions intact. No scleral icterus. No injection or drainage. ENT: Nose without bleeding, purulent drainage or septal hematoma. Throat without erythema, tonsillar hypertrophy or exudate. Uvula midline. Airway patent. NECK: Trachea midline. No JVD or lymphadenopathy. Supple, nontender, no meningeal signs. CARDIOVASCULAR: Regular rate and rhythm without murmurs, gallops, or rubs. RESPIRATORY: Clear to auscultation. Breath sounds equal bilaterally. No wheezes , rales, or rhonchi. GASTROINTESTINAL: Abdomen soft, non-tender, nondistended. No hepato-splenomegaly , or palpable masses. No guarding.patient does have peritoneal catheter left abdomen but no surrounding erythema. MUSCULOSKELETAL: Extremities without clubbing, cyanosis, or edema. No joint tenderness, effusion, or edema noted. No calf tenderness. Negative Homans sign bilaterally. NEUROLOGICAL: Awake and alert. Cranial nerves II through XII intact. Motor and sensory grossly within normal limits. Five out of 5 muscle strength in all muscle groups. Normal speech. Laboratory Laboratory Tests Test 02/04/17 02/05/17 02/05/17 02/05/17 23:59 00:24 09:50 15:12 Urine Color YELLOW Urine Turbidity CLEAR Urine pH 5.5 Urine Specific [place] 1.016 Urine Protein NEG Urine Glucose (UA) NEG Urine Ketones NEG Urine Occult Blood NEG Urine Nitrite NEG Urine Bilirubin NEG Urine Urobilinogen 2.0 Urine Leukocyte Esterase NEG Urine RBC 1 Urine WBC LESS THAN 1 Urine Squamous Epithelial <1 Cells Urine Hyaline Casts 6 Microscopic Urinalysis Comment CULT NOT INDICATED Blood Gas Puncture Site RT RADIAL Blood Gas Patient Temperature 98.6 Blood Gas HCO3 18 Blood Gas Base Excess -6.2 Blood Gas Oxygen Saturation 95 Arterial Blood pH 7.36 Arterial Blood Partial 33 Pressure CO2 Arterial Blood Partial 101 Pressure O2 Arterial Blood Oxygen Content 21.2 Arterial Blood 1.6 Carboxyhemoglobin Arterial Blood Methemoglobin 0.5 Blood Gas Hemoglobin 15.8 Oxygen Delivery Device NASAL CANNULA Blood Gas Liter Flow 4 White Blood Count 10.4 Red Blood Count 4.78 Hemoglobin 14.6 Hematocrit 44.2 Mean Corpuscular Volume 92.5 Mean Corpuscular Hemoglobin 30.6 Mean Corpuscular Hemoglobin 33.1 Concent Red Cell Distribution Width 16.8 Platelet Count 228 Mean Platelet Volume 9.0 Neutrophils (%) (Auto) 81.7 Lymphocytes (%) (Auto) 9.1 Monocytes (%) (Auto) 8.0 Eosinophils (%) (Auto) 0.6 Basophils (%) (Auto) 0.6 Neutrophils # (Auto) 8.5 Lymphocytes # (Auto) 0.9 Monocytes # (Auto) 0.8 Eosinophils # (Auto) 0.1 Basophils # (Auto) 0.1 CBC Comment DIFF FINAL Differential Comment Sodium Level 129 Potassium Level 5.4 Chloride Level 98 Carbon Dioxide Level 24.1 Anion Gap 7 Blood Urea Nitrogen 36 Creatinine 1.49 Estimat Glomerular Filtration 46 Rate Random Glucose 105 Calcium Level 8.3 Total Bilirubin 0.7 Aspartate Amino Transf 26 (AST/SGOT) Alanine Aminotransferase 14 (ALT/SGPT) Alkaline Phosphatase 103 Total Creatine Kinase 105 150 Creatine Kinase MB 2.3 2.3 Troponin I 0.04 0.03 Total Protein 4.8 Albumin 1.7 Date/Time Procedure Status Source Growth 02/04/17 23:46 Aerobic Blood Culture Received Blood Peripheral Pending 02/04/17 23:46 Anaerobic Blood Culture Received Blood Peripheral Pending Result Diagram: 02/05/17 0950 02/05/17 0950 Assessment and Plan Assessment and Plan //Cervical fracture. Nonoperative management. Collar in place. Appreciate neurosurgery assistance. //Suspected Syncope. //History of atrial fibrillation Cardiology consult. -hOld blood pressure medications, antiarrhythmics at this time. Monitor on telemetry -Warfarin heldAC as per surgical service Appreciate cardiology assistance. //Hyperlipidemia. Continue pravastatin. //Gout. Holding allopurinol due to kidney failure //Hypokalemia //Renal impairment //Hypernatremia //Chronic abdominal ascites. Indwelling peritoneal catheter. Consult nephrology. Appreciate nephrology assistance. //Prophylaxis. As per surgical service. Discussed Condition With patient, nurse. Andrea Cheek MD Feb 05, 2017 23:57
[2017-02-06] VITALS (9 sets, daily range): BP systolic 90–107; BP diastolic 57–67; PULSE 74–75; RESP 16–24; TEMP 95.6–98.1; O2SAT 94–97
[2017-02-06] MEDS: ACETAMINOPHEN 325 MG TAB PO PRN (03:37)
[2017-02-06 07:20] LABS: AUTOMATED NEUTROPHIL # 6.8 TH/MM3 (1.8-7.7); BASOPHIL # 0.1 TH/MM3 (0-0.2); EOSINOPHIL # 0.1 TH/MM3 (0-0.4); EOSINOPHIL % 1.5 % (0.0-4.0); HEMO FLAGS DIFF FINAL; INTERNATIONAL NORMALIZED RATIO 1.5 RATIO; LYMPHOCYTE # 0.9 TH/MM3 (1.0-4.8); MEAN CELL VOLUME 92.5 FL (80.0-100.0); MEAN CORPUSCULAR HEMOGLOBIN 30.9 PG (27.0-34.0); MEAN CORPUSCULAR HGB CONC 33.4 % (32.0-36.0); MONO % 9.4 % (0.0-8.0); NEUT % 78.1 % (16.0-70.0); PLATELET COUNT 204 TH/MM3 (150-450); PROTHROMBIN TIME - PATIENT 16.3 SEC (9.8-11.6); RED BLOOD COUNT 4.54 MIL/MM3 (4.50-5.90); RED CELL DISTRIBUTION WIDTH 17.2 % (11.6-17.2); WHITE BLOOD COUNT 8.7 TH/MM3 (4.0-11.0)
[2017-02-06 07:58] LABS: ANION GAP 9 MEQ/L (5-15); AST (GOT) 22 U/L (15-37); BICARBONATE 21.9 MEQ/L (21.0-32.0); BLOOD UREA NITROGEN 39 MG/DL (7-18); CHLORIDE 100 MEQ/L (98-107); GLOMERULAR FILTRATION RATE 47 ML/MIN (>89); POTASSIUM 5.2 MEQ/L (3.5-5.1); SODIUM (NA) 131 MEQ/L (136-145)
[2017-02-06 08:01] LABS: ALKALINE PHOSPHATASE 94 U/L (45-117); ALT (GPT) 12 U/L (12-78); TOTAL BILIRUBIN ADULT 0.7 MG/DL (0.2-1.0)
[2017-02-06] MEDS: BACITRACIN TOP OINT 15 GM TUBE TOP SCH ×2 (09:00→23:15)
[2017-02-06] MEDS: SODIUM CHLORIDE 0.9% FLUSH 10 ML FLUSH IV FLUSH SCH ×2 (09:00→21:00)
[2017-02-06] MEDS: DOCUSATE SODIUM 50 MG/SENNA 8.6 MG TAB PO SCH ×2 (09:35→21:17)
[2017-02-06] MEDS: PRAVASTATIN SOD 40 MG TAB PO SCH (09:35)
[2017-02-06] MEDS: ASPIRIN 81 MG CHEW TAB CHEW SCH (09:35)
[2017-02-06] MEDS: PANTOPRAZOLE SODIUM 40 MG VIAL IVP SCH (09:36)
--- NOTE | 2017-02-06 10:42 | PD.CARD.PN ---
Subjective Subjective Remarks No chest pain, no shortness of breath Objective Medications Current Medications Medications (Trade) Dose Ordered Sig/Carlin Route Start Time Stop Time Status Last Admin (Tylenol) 650 mg Q4H PRN PO 02/05/17 03:15 02/06/17 03:37 (NS Flush) 2 ml BID IV FLUSH 02/05/17 09:00 02/06/17 09:00 (NS Flush) 2 ml UNSCH PRN IVF 02/05/17 03:15 (Ashley-Colace) 1 tab BID PO 02/05/17 09:00 02/06/17 09:35 (Tylenol) 650 mg Q6H PRN PO 02/05/17 08:45 (Vasotec Inj) 1.25 mg Q8H PRN IV 02/05/17 08:45 (Zofran Inj) 4 mg Q6H PRN IV 02/05/17 08:45 (Protonix Inj) 40 mg Q24H IVP 02/05/17 08:45 02/06/17 09:36 (Baciguent Oint) 1 applic BID TOP 02/05/17 09:00 02/06/17 09:00 (Aspirin Chew) 81 mg DAILY CHEW 02/06/17 09:00 02/06/17 09:35 (Pravachol) 40 mg DAILY PO 02/06/17 09:00 02/06/17 09:35 Vital Signs / I&O Vital Signs Date Time Temp Pulse Resp B/P Pulse Ox O2 Delivery O2 Flow Rate FiO2 02/06/17 08:00 96.2 75 16 95/61 95 02/06/17 04:40 97.9 75 20 101/60 94 106/67 02/06/17 04:26 94 Nasal Cannula 1.00 02/06/17 00:40 98.1 75 20 103/61 94 107/57 02/05/17 21:45 98.9 74 20 95/58 93 02/05/17 20:15 75 18 107/58 96 02/05/17 19:23 75 18 107/58 94 Room Air 02/05/17 16:07 98.0 59 18 98/60 Nasal Cannula 6 02/05/17 14:14 93 Nasal Cannula 3.00 02/05/17 14:11 97.8 75 18 100/59 95 Nasal Cannula 2 02/05/17 12:53 96 2 02/05/17 12:53 78 16 109/62 Nasal Cannula 2 02/05/17 12:53 Nasal Cannula 2 I/O 02/05/17 02/05/17 02/05/17 02/06/17 02/06/17 02/06/17 06:59 14:59 22:59 06:59 14:59 22:59 Intake Total 100 ml 180 ml 800 ml Output Total 700 ml 1100 ml 200 ml Balance -600 ml -920 ml 600 ml Intake Oral 100 ml 180 ml 800 ml Output Urine Total 700 ml 1100 ml 200 ml # Voids 0 0 # Bowel Movements 0 0 0 Physical Exam GENERAL: NAD, AAO SKIN: Warm and dry. HEAD: Cut across forehead Normocephalic. EYES: Pupils equal and round. No scleral icterus. No injection or drainage. ENT: No nasal bleeding or discharge. Mucous membranes pink and moist. NECK: Trachea midline. No JVD. CARDIOVASCULAR: Regular rate and rhythm. RESPIRATORY: No accessory muscle use. Clear to auscultation. Breath sounds equal bilaterally. GASTROINTESTINAL: Abdomen soft, non-tender, nondistended. Hepatic and splenic margins not palpable. MUSCULOSKELETAL: Trace edema bilaterally NEUROLOGICAL: Awake and alert. No obvious cranial nerve deficits. Motor grossly within normal limits. Five out of 5 muscle strength in the arms and legs. Normal speech. PSYCHIATRIC: Appropriate mood and affect; insight and judgment normal. Laboratory Laboratory Tests Test 02/05/17 02/06/17 15:12 06:48 Total Creatine Kinase 150 U/L Creatine Kinase MB 2.3 NG/ML Troponin I 0.03 NG/ML White Blood Count 8.7 TH/MM3 Red Blood Count 4.54 MIL/MM3 Hemoglobin 14.0 GM/DL Hematocrit 42.0 % Mean Corpuscular Volume 92.5 FL Mean Corpuscular Hemoglobin 30.9 PG Mean Corpuscular Hemoglobin 33.4 % Concent Red Cell Distribution Width 17.2 % Platelet Count 204 TH/MM3 Mean Platelet Volume 8.6 FL Neutrophils (%) (Auto) 78.1 % Lymphocytes (%) (Auto) 10.0 % Monocytes (%) (Auto) 9.4 % Eosinophils (%) (Auto) 1.5 % Basophils (%) (Auto) 1.0 % Neutrophils # (Auto) 6.8 TH/MM3 Lymphocytes # (Auto) 0.9 TH/MM3 Monocytes # (Auto) 0.8 TH/MM3 Eosinophils # (Auto) 0.1 TH/MM3 Basophils # (Auto) 0.1 TH/MM3 CBC Comment DIFF FINAL Differential Comment Prothrombin Time 16.3 SEC Prothromb Time International 1.5 RATIO Ratio Sodium Level 131 MEQ/L Potassium Level 5.2 MEQ/L Chloride Level 100 MEQ/L Carbon Dioxide Level 21.9 MEQ/L Anion Gap 9 MEQ/L Blood Urea Nitrogen 39 MG/DL Creatinine 1.45 MG/DL Estimat Glomerular Filtration 47 ML/MIN Rate Random Glucose 104 MG/DL Calcium Level 8.5 MG/DL Total Bilirubin 0.7 MG/DL Aspartate Amino Transf 22 U/L (AST/SGOT) Alanine Aminotransferase 12 U/L (ALT/SGPT) Alkaline Phosphatase 94 U/L Total Protein 4.6 GM/DL Albumin 1.8 GM/DL Assessment and Plan Problem List: (1) Fracture of cervical vertebra without spinal cord injury (2) Forehead abrasion (3) Acute renal failure superimposed on stage 3 chronic kidney disease (4) Fall Assessment and Plan 1) Question of syncope vs fall, may be due to orthostatic hypotension with dehydration after getting out of bed to use the bathroom 2) Blood pressure usually runs in the 90-100 range per the patient, Coreg/MALIK-I/ Dig/Sotalol stopped... Digoxin level cancelled this morning, will check level 3) Will most likely need to stay off MALIK-I for now, if blood pressure is better would restart Coreg first then depending on blood pressure either Sotalol or Digoxin 4) No events noted on Telemetry 5) [employer] to interrogate ICD today 6) 2D echo pending Problem Qualifiers (1) Fracture of cervical vertebra without spinal cord injury: Qualified Code: S12.9XXA - Fracture of cervical vertebra without spinal cord injury, initial encounter (2) Forehead abrasion: Qualified Code: S00.81XA - Forehead abrasion, initial encounter Mateus White DO Feb 06, 2017 10:42
--- NOTE | 2017-02-06 10:48 | PD.CONS ---
HPI Service Nephrology Consult Requested By Reason for Consult Acute on CKD Primary Care Physician Vikki Hatfield MD History of Present Illness This is a 77 y/o male brought in after he was found down "for some time", does not remember LOC or mechanism of fall. PMH of CAD, HTN, arrhythmia, and CKD. He follows with out group outpatient. In November his creatinine was 1.38, GFR 50. On arrival here his creatinine was 1.56, but has improved to 1.45. He also has a hx of cirrhosis with a drain in place that he drains ascites Q3 days, typically gets 3-4 liters off. He appears dry today, states his ascites is normally much worse, has not been drained in 5-6 days. He is non oliguric, we were consulted for management. Of not he has a C4 fracture, but has removed the [place] collar. His BP has been borderline low this admission. (Stephenie Ames) Review of Systems Cardiovascular: COMPLAINS OF: Syncope, DENIES: Palpitations Gastrointestinal: DENIES: Abdominal pain Genitourinary: COMPLAINS OF: Testicular Swelling Musculoskeletal: COMPLAINS OF: Joint pain (Stephenie Ames) Past Family Social History Allergies: Coded Allergies: Codeine (Verified Allergy, Severe, RASH, 02/05/17) MRI PRECAUTION (Verified Adverse Reaction, Unknown, NON COMPATIBLE ICD LRS 02/05/17, 02/05/17) Past Medical History CKD 3, baseline creatinine 1.38, GFR 50 HTN CAD arrhythmia gout anxiety cirrhosis (chronic) with drain Past Surgical History inguinal hernia repair defibrillator placement ascites drain Reported Medications list reviewed and includes coumadin, digoxin, lisinopril, xanax, allopurinol Active Ordered Medications Current Medications Medications (Trade) Dose Ordered Sig/Carlin Route Start Time Stop Time Status Last Admin (Tylenol) 650 mg Q4H PRN PO 02/05/17 03:15 02/06/17 03:37 (NS Flush) 2 ml BID IV FLUSH 02/05/17 09:00 02/06/17 09:00 (NS Flush) 2 ml UNSCH PRN IVF 02/05/17 03:15 (Ashley-Colace) 1 tab BID PO 02/05/17 09:00 02/06/17 09:35 (Tylenol) 650 mg Q6H PRN PO 02/05/17 08:45 (Vasotec Inj) 1.25 mg Q8H PRN IV 02/05/17 08:45 (Zofran Inj) 4 mg Q6H PRN IV 02/05/17 08:45 (Protonix Inj) 40 mg Q24H IVP 02/05/17 08:45 02/06/17 09:36 (Baciguent Oint) 1 applic BID TOP 02/05/17 09:00 02/06/17 09:00 (Aspirin Chew) 81 mg DAILY CHEW 02/06/17 09:00 02/06/17 09:35 (Pravachol) 40 mg DAILY PO 02/06/17 09:00 02/06/17 09:35 Family History No hx of renal disorders Social History , lives alone, no children former smoker, quit in 1983 no ETOH retired uses walker to ambulate full code (Stephenie Ames) Physical Exam Vital Signs Vital Signs Date Time Temp Pulse Resp B/P Pulse Ox O2 Delivery O2 Flow Rate FiO2 02/06/17 08:00 96.2 75 16 95/61 95 02/06/17 04:40 97.9 75 20 101/60 94 106/67 02/06/17 04:26 94 Nasal Cannula 1.00 02/06/17 00:40 98.1 75 20 103/61 94 107/57 02/05/17 21:45 98.9 74 20 95/58 93 02/05/17 20:15 75 18 107/58 96 02/05/17 19:23 75 18 107/58 94 Room Air 02/05/17 16:07 98.0 59 18 98/60 Nasal Cannula 6 02/05/17 14:14 93 Nasal Cannula 3.00 02/05/17 14:11 97.8 75 18 100/59 95 Nasal Cannula 2 02/05/17 12:53 96 2 02/05/17 12:53 78 16 109/62 Nasal Cannula 2 02/05/17 12:53 Nasal Cannula 2 Physical Exam Elderly frail male pt, sitting up in bed multiple abrasions to forhead, left arm, CV: S1/S2, irreg irreg, AICD left chest Lungs: clear Abd: slight ascites; drain in place ext: chronic venous stasis Laboratory Laboratory Tests Test 02/05/17 02/06/17 15:12 06:48 Total Creatine Kinase 150 Creatine Kinase MB 2.3 Troponin I 0.03 White Blood Count 8.7 Red Blood Count 4.54 Hemoglobin 14.0 Hematocrit 42.0 Mean Corpuscular Volume 92.5 Mean Corpuscular Hemoglobin 30.9 Mean Corpuscular Hemoglobin 33.4 Concent Red Cell Distribution Width 17.2 Platelet Count 204 Mean Platelet Volume 8.6 Neutrophils (%) (Auto) 78.1 Lymphocytes (%) (Auto) 10.0 Monocytes (%) (Auto) 9.4 Eosinophils (%) (Auto) 1.5 Basophils (%) (Auto) 1.0 Neutrophils # (Auto) 6.8 Lymphocytes # (Auto) 0.9 Monocytes # (Auto) 0.8 Eosinophils # (Auto) 0.1 Basophils # (Auto) 0.1 CBC Comment DIFF FINAL Differential Comment Prothrombin Time 16.3 Prothromb Time International 1.5 Ratio Sodium Level 131 Potassium Level 5.2 Chloride Level 100 Carbon Dioxide Level 21.9 Anion Gap 9 Blood Urea Nitrogen 39 Creatinine 1.45 Estimat Glomerular Filtration 47 Rate Random Glucose 104 Calcium Level 8.5 Total Bilirubin 0.7 Aspartate Amino Transf 22 (AST/SGOT) Alanine Aminotransferase 12 (ALT/SGPT) Alkaline Phosphatase 94 Total Protein 4.6 Albumin 1.8 Date/Time Procedure Status Source Growth 02/04/17 23:46 Aerobic Blood Culture Received Blood Peripheral Pending 02/04/17 23:46 Anaerobic Blood Culture Received Blood Peripheral Pending (Stephenie Ames) Result Diagram: 02/06/17 0648 02/06/17 0648 Imaging Last Impressions Pelvis X-Ray 02/04/172340 Signed Impressions: Service Date/Time: January 00:33 - CONCLUSION: No obvious fractures. Prashanth Ca MD Head CT 02/04/172340 Signed Impressions: Service Date/Time: January 01:01 - CONCLUSION: No acute disease. Prashanth Ca MD Chest X-Ray 02/04/172340 Signed Impressions: Service Date/Time: January 00:30 - CONCLUSION: No acute disease. Prashanth Ca MD Cervical Spine CT 02/04/172340 Signed Impressions: Service Date/Time: January 01:01 - CONCLUSION: There is an acute teardrop fracture of the anterior-inferior corner of the C4 vertebral body. There is no loss of vertebral body height. There is questionable relative widening of the C4-5 facet joints right greater than left. Associated prevertebral soft tissue swelling. Prashanth Ca MD (Stephenie Ames) Assessment and Plan Problem List: (1) Acute renal failure superimposed on stage 3 chronic kidney disease Plan: baseline creatinine 1.38, GFR 50 NEEL may be prerenal due to dehydration, but rhabdomyolysis must also be considered renal function is improving he appears volume depleted and his urine is dark start IVF, 1/2 NS with bicarb K 5.2, monitor he has mendez. monitor output, non oliguric currently check CPK monitor BP, borderline low avoid nephrotoxins daily renal panel (2) Fracture of cervical vertebra without spinal cord injury Plan: non surgical management he is in [facility], but has removed it at the time of my exam fall precautions (3) Hyponatremia Plan: suspected hypovolemic hypovolemia; although hx of cirrhosis his ascites volume is not as much as usual IVF as above (Stephenie Ames) Assessment and Plan patient was seen and examined. CPK is not high, so does not have rhabdomyolysis. GFR is at baseline. Continue supportive care. Monitor electrolytes and renal function as well as urine output. Taper off fluids. (Trent Best MD) Problem Qualifiers (1) Fracture of cervical vertebra without spinal cord injury: Qualified Code: S12.9XXA - Fracture of cervical vertebra without spinal cord injury, initial encounter Stephenie Ames Feb 06, 2017 10:48 Trent Best MD Feb 06, 2017 13:51
[2017-02-06] MEDS: SODIUM BICARBONATE 8.4% INJ 50 MEQ in SODIUM CHLOR 0.45% 1000 ML INJ 1,000 ML IV SCH (12:00)
--- NOTE | 2017-02-06 12:11 | RADRPT ---
EXAM DATE/TIME: 02/06/2017 11:33 [place] COMPARISON: CT CERVICAL SPINE W/O CONTRAST, February 05, 2017, 1:01. PELVIS AP ONLY, February 05, 2017, 0:33. INDICATIONS : Evaluate fracture MEDICAL HISTORY : Carcinoma, esophageal. SURGICAL HISTORY : Pacemaker. ENCOUNTER: Initial ACUITY: 2 days PAIN SCORE: 0/10 LOCATION: C-spine FINDINGS: There are 7 cervical vertebral bodies. There is a small fracture of the inferior/anterior endplate of C4. This is nondisplaced. Alignment is similar to the previous CT scan. The C5/C6 level is fused. The overall alignment is adequate. CONCLUSION: 1. There is a small fracture off the anterior endplate of C4 this is unchanged from previous exam. 2. D5/6 level is fused. 3. Advanced degenerative changes at C6/7. Domingo Middleton MD on February 06, 2017 at 12:09 Board Certified Radiologist. This report was verified electronically.
--- NOTE | 2017-02-06 15:29 | HHI.NSPN ---
(Yasmin Arriola) Note Status Status: Progress Note (Liam Crocker MD) Interval History Interval History This is a 77-year-old male with history of Coronary artery disease, arterial Hypertension, Supraventricular arrhythmias status post placement of a defibrillator who was brought by to [facility] by EMS. Apparently he fell on the floor and developed neck pain. Mo LOC. No seizure. No tongue bitting, No incontinence of stool or urine He came in a C-collar. Moving all 4 extremities. No sensory loss. Severe neck pain. CT showed a teardrop fracture. Neurosurgical consultation was requested. 02/06: eating his breakfast, he denies cervical pain which includes movement. ( Yasmin Arriola) Labs, Micro, & Vital Signs Results Date Time Temp Pulse Resp B/P Pulse Ox O2 Delivery O2 Flow Rate FiO2 02/06/17 12:00 95.6 75 16 90/57 94 02/06/17 08:00 96.2 75 16 95/61 95 02/06/17 04:40 97.9 75 20 101/60 94 106/67 02/06/17 04:26 94 Nasal Cannula 1.00 02/06/17 00:40 98.1 75 20 103/61 94 107/57 02/05/17 21:45 98.9 74 20 95/58 93 02/05/17 20:15 75 18 107/58 96 02/05/17 19:23 75 18 107/58 94 Room Air 02/05/17 16:07 98.0 59 18 98/60 Nasal Cannula 6 02/06/17 07:00 Intake Total 1080 ml Output Total 2000 ml Balance -920 ml Constitutional Vital Signs Date Time Temp Pulse Resp B/P Pulse Ox O2 Delivery O2 Flow Rate FiO2 02/06/17 12:00 95.6 75 16 90/57 94 02/06/17 08:00 96.2 75 16 95/61 95 02/06/17 04:40 97.9 75 20 101/60 94 106/67 02/06/17 04:26 94 Nasal Cannula 1.00 02/06/17 00:40 98.1 75 20 103/61 94 107/57 02/05/17 21:45 98.9 74 20 95/58 93 02/05/17 20:15 75 18 107/58 96 02/05/17 19:23 75 18 107/58 94 Room Air 02/05/17 16:07 98.0 59 18 98/60 Nasal Cannula 6 02/06/17 07:00 Intake Total 1080 ml Output Total 2000 ml Balance -920 ml (Yasmin Arriola) Review of Systems/Exam Exam Mr. Mike is alert, appears comfortable in bed and feeding himself breakfast. Cranial nerve examination demonstrates the pupils to be equal, round, and reactive to light. Extra-ocular movements are intact. Facial motor are normal and symmetrical. Cervical: range of motion without pain Motor: moves all major muscle groups of upper and lower extremities well. Sensory examination repots intact to light touch x 4 Plantars downgoing b/l. Negative Lara's signs. No ankle clonus. (Yasmin Arriola) Medications Current Medications Current Medications Medications (Trade) Dose Ordered Sig/Carlin Route PRN Reason Start Time Stop Time Status Last Admin Dose Admin Acetaminophen (Tylenol) 650 mg Q4H PRN PO Headache 02/05/17 03:15 02/06/17 03:37 Sodium Chloride (NS Flush) 2 ml BID IV FLUSH 02/05/17 09:00 02/06/17 09:00 Sodium Chloride (NS Flush) 2 ml UNSCH PRN IVF FLUSH AFTER USING IV ACCESS 02/05/17 03:15 Senna/Docusate Sodium (Ashley-Colace) 1 tab BID PO 02/05/17 09:00 02/06/17 09:35 Acetaminophen (Tylenol) 650 mg Q6H PRN PO Pain/ TEMP > 102 F 02/05/17 08:45 Enalaprilat (Vasotec Inj) 1.25 mg Q8H PRN IV SBP>180, DBP>95 02/05/17 08:45 Ondansetron HCl (Zofran Inj) 4 mg Q6H PRN IV NAUSEA OR VOMITING 02/05/17 08:45 Pantoprazole Sodium (Protonix Inj) 40 mg Q24H IVP 02/05/17 08:45 02/06/17 09:36 Bacitracin (Baciguent Oint) 1 applic BID TOP 02/05/17 09:00 02/06/17 09:00 Aspirin (Aspirin Chew) 81 mg DAILY CHEW 02/06/17 09:00 02/06/17 09:35 Pravastatin Sodium 40 mg 40 mg DAILY PO 02/06/17 09:00 02/06/17 09:35 Sodium Bicarbonate/ Sodium Chloride (Sodium Bicarbonate 8.4% Inj/1/2 NS 1000 ml Inj) 1,050 ml @ 42 mls/hr Q24H IV 02/06/17 12:00 02/06/17 12:00 (Yasmin Arriola) Medical Decision Making MDM Remarks 77 y/o male with C4 tear drop fracture unable to undergo MRI due to pacemaker stable flexion/extension xrays of the cervical spine (Yasmin Arriola) Plan Plan Remarks stable flex/ex xrays of the cervical spine cont nonoperative management with cervical collar clear to dc from NRS standpoint, f/u Dr. Crocker office in 4 weeks with f/u cervical spine xrays will sign off, call prn (Yasmin Arriola) Attending Statement Continue neuro checks, Respiratory. Continue Pulmonary toilette, nasotracheal suction, and breathing treatments with nebulizers Daily PT and OT Nutrition. Continue tube feedings Renal. Continue monitor closely urine output, BUN and creatinine Endocrine. Continue Monitor serial Acu checks and SSI for tight control ID monitor for signs of infection Continue Protonix for stress ulcer prophylaxis Continue Marcus hose and SCD's for DVT prophylaxis The exam, history, and the medical decision-making described in the above note were completed with the assistance of the mid-level provider. I reviewed and agree with the findings presented. I attest that I had a [id number] encounter with the patient on the same day, and personally performed and documented my assessment and findings in the medical record. (Liam Crocker MD) Yasmin Arriola Feb 06, 2017 15:29 Liam Crocker MD Feb 08, 2017 20:28
--- NOTE | 2017-02-06 18:05 | HHI.PR ---
Subjective Subjective Notes Denies pain. Denies paresthesias. Asking the plan for his neck. States he had his x-rays done today. Objective Vitals/I&O Vital Signs Date Time Temp Pulse Resp B/P Pulse Ox O2 Delivery O2 Flow Rate FiO2 02/06/17 16:07 94 Nasal Cannula 1.00 02/06/17 16:00 95.7 75 20 99/61 Labs Laboratory Tests Test 02/06/17 06:48 White Blood Count 8.7 Red Blood Count 4.54 Hemoglobin 14.0 Hematocrit 42.0 Mean Corpuscular Volume 92.5 Mean Corpuscular Hemoglobin 30.9 Mean Corpuscular Hemoglobin 33.4 Concent Red Cell Distribution Width 17.2 Platelet Count 204 Mean Platelet Volume 8.6 Neutrophils (%) (Auto) 78.1 Lymphocytes (%) (Auto) 10.0 Monocytes (%) (Auto) 9.4 Eosinophils (%) (Auto) 1.5 Basophils (%) (Auto) 1.0 Neutrophils # (Auto) 6.8 Lymphocytes # (Auto) 0.9 Monocytes # (Auto) 0.8 Eosinophils # (Auto) 0.1 Basophils # (Auto) 0.1 CBC Comment DIFF FINAL Differential Comment Prothrombin Time 16.3 Prothromb Time International 1.5 Ratio Sodium Level 131 Potassium Level 5.2 Chloride Level 100 Carbon Dioxide Level 21.9 Anion Gap 9 Blood Urea Nitrogen 39 Creatinine 1.45 Estimat Glomerular Filtration 47 Rate Random Glucose 104 Calcium Level 8.5 Total Bilirubin 0.7 Aspartate Amino Transf 22 (AST/SGOT) Alanine Aminotransferase 12 (ALT/SGPT) Alkaline Phosphatase 94 Total Creatine Kinase 62 Total Protein 4.6 Albumin 1.8 Date/Time Procedure Status Source Growth 02/04/17 23:46 Aerobic Blood Culture - Preliminary Resulted Blood Peripheral NO GROWTH IN 1 DAY 02/04/17 23:46 Anaerobic Blood Culture - Preliminary Resulted Blood Peripheral NO GROWTH IN 1 DAY Radiology Last Impressions Cervical Spine X-Ray 02/06/17 0000 Signed Impressions: Service Date/Time: Monday, February 06, 2017 11:33 - CONCLUSION: 1. There is a small fracture off the anterior endplate of C4 this is unchanged from previous exam. 2. D5/6 level is fused. 3. Advanced degenerative changes at C6/7. Domingo Middleton MD Pelvis X-Ray 02/04/17 3311 Signed Impressions: Service Date/Time: January 00:33 - CONCLUSION: No obvious fractures. Prashanth Ca MD Head CT 02/04/172340 Signed Impressions: Service Date/Time: January 01:01 - CONCLUSION: No acute disease. Prashanth Ca MD Chest X-Ray 02/04/172340 Signed Impressions: Service Date/Time: January 00:30 - CONCLUSION: No acute disease. Prashanth Ca MD Cervical Spine CT 02/04/172340 Signed Impressions: Service Date/Time: January 01:01 - CONCLUSION: There is an acute teardrop fracture of the anterior-inferior corner of the C4 vertebral body. There is no loss of vertebral body height. There is questionable relative widening of the C4-5 facet joints right greater than left. Associated prevertebral soft tissue swelling. Prashanth Ca MD Narrative Exam GENERAL: 77-year-old well-nourished, well developed male lying in bed and cervical collar in place. SKIN: Warm and dry. HEAD: Normocephalic. ENT: No nasal bleeding or discharge. Mucous membranes pink and moist. NECK: Trachea midline. No JVD. CARDIOVASCULAR: Regular rate and rhythm. RESPIRATORY: No accessory muscle use. Lungs clear to auscultation. Breath sounds equal bilaterally. GASTROINTESTINAL: Abdomen soft, non-tender, nondistended. + BS. MUSCULOSKELETAL: Extremities without cyanosis, or edema. No obvious deformities. MAEW. NEUROLOGICAL: Awake and alert. Normal speech. A/P Assessment and Plan INJURIES: C4 fx PMHx: CAD, HTN, SVT, defibrillator placement, anxiety, gout, CKD, CHF Diet: Regular, tolerating Pulmonary: IS, encourage patient use Pain: Tylenol. Denies pain. Activity: BR, PT/OT ordered. GI: IV Protonix Bowel: Ashley-colace DVT: SCDs Unable to get MRI of cspine d/t pacemaker- Flex/extension xrays. Neurosurgery following. RN to update home medications. HEPAS- following for medical management. Cardiology consulted for possible syncopal episode and workup. Plan of care discussed patient at bedside. No family present during visit. The exam, history, and the medical decision-making described in the above note were completed with the assistance of the mid-level provider. I reviewed and agree with the findings presented. I attest that I had a [id number] encounter with the patient on the same day, and personally performed and documented my assessment and findings in the medical record. Nicole Foster Feb 06, 2017 18:05 Maxi Butler MD Feb 21, 2017 23:38
--- NOTE | 2017-02-06 23:55 | HHI.PR ---
Subjective Remarks patient seen this morning around 11 AM. Says he is feeling all right. Denies any chest pain or shortness of breath. no bowel movement yet. Objective Vital Signs Date Time Temp Pulse Resp B/P Pulse Ox O2 Delivery O2 Flow Rate FiO2 02/06/17 20:00 97.4 75 24 92/65 96 02/06/17 16:07 94 Nasal Cannula 1.00 02/06/17 16:00 95.7 75 20 99/61 97 02/06/17 12:00 95.6 75 16 90/57 94 02/06/17 08:05 74 02/06/17 08:00 96.2 75 16 95/61 95 02/06/17 04:40 97.9 75 20 101/60 94 106/67 02/06/17 04:26 94 Nasal Cannula 1.00 02/06/17 00:40 98.1 75 20 103/61 94 107/57 I/O 02/05/17 02/05/17 02/05/17 02/06/17 02/06/17 02/06/17 07:00 15:00 23:00 07:00 15:00 23:00 Intake Total 100 ml 180 ml 800 ml 480 ml Output Total 700 ml 1100 ml 200 ml 400 ml Balance -600 ml -920 ml 600 ml 80 ml Intake Oral 100 ml 180 ml 800 ml 480 ml Output Urine Total 700 ml 1100 ml 200 ml 400 ml # Voids 0 0 # Bowel Movements 0 0 0 Result Diagram: 02/06/17 0648 02/06/17 0648 Imaging Last Impressions Cervical Spine X-Ray 02/06/17 0000 Signed Impressions: Service Date/Time: Monday, February 06, 2017 11:33 - CONCLUSION: 1. There is a small fracture off the anterior endplate of C4 this is unchanged from previous exam. 2. D5/6 level is fused. 3. Advanced degenerative changes at C6/7. Domingo Middleton MD Pelvis X-Ray 02/04/172340 Signed Impressions: Service Date/Time: January 00:33 - CONCLUSION: No obvious fractures. Prashanth Ca MD Head CT 02/04/171 Signed Impressions: Service Date/Time: January 01:01 - CONCLUSION: No acute disease. Prashanth Ca MD Chest X-Ray 02/04/172340 Signed Impressions: Service Date/Time: January 00:30 - CONCLUSION: No acute disease. Prashanth Ca MD Cervical Spine CT 02/04/172340 Signed Impressions: Service Date/Time: January 01:01 - CONCLUSION: There is an acute teardrop fracture of the anterior-inferior corner of the C4 vertebral body. There is no loss of vertebral body height. There is questionable relative widening of the C4-5 facet joints right greater than left. Associated prevertebral soft tissue swelling. Prashanth Ca MD Objective Remarks GENERAL: patient lying in bed. Appears comfortable. Cervical collar in place. Alert and oriented 3. SKIN: Warm and dry. HEAD: Normocephalic. EYES: No scleral icterus. No injection or drainage. NECK: Supple, trachea midline. No JVD or lymphadenopathy. CARDIOVASCULAR: Regular rate and rhythm without murmurs, gallops, or rubs. RESPIRATORY: Breath sounds equal bilaterally. No accessory muscle use. GASTROINTESTINAL: Abdomen soft, non-tender, nondistended. MUSCULOSKELETAL: No cyanosis, or edema. BACK: Nontender without obvious deformity. No CVA tenderness. A/P Assessment and Plan //Cervical fracture. Nonoperative management. Appreciate neurosurgery assistance. //Suspected Syncope. //History of atrial fibrillation Cardiology following. 2-D echo pending. Remote Assistanttronic interrogation. Digoxin level check pending. Antiarrhythmics, blood pressure medications held at this time. -Warfarin heldadequate regulation as per surgical service Appreciate cardiology assistance. //Hyperlipidemia. Continue pravastatin. //Gout. Holding allopurinol due to kidney failure //Hypokalemia //Renal impairment //Hypernatremia Appreciate nephrology assistance. //Prophylaxis. As per surgical service. Discharge Planning as per primary team. Andrea Cheek MD Feb 06, 2017 23:55
[2017-02-07] VITALS (9 sets, daily range): BP systolic 95–103; BP diastolic 52–64; PULSE 74–82; RESP 16–22; TEMP 95–98.7; O2SAT 93–96
--- NOTE | 2017-02-07 | EC ---
Study Study Date:02/06/2017 STUDY CONCLUSIONS SUMMARY - Left ventricle: The cavity size was dilated. Wall thickness was normal. Systolic function was severely reduced. The estimated ejection fraction was 25%. Wall motion was normal; there were no regional wall motion abnormalities. - Aortic valve: Mild regurgitation. - Mitral valve: Calcified annulus. - Left atrium: The atrium was dilated. - Right ventricle: The cavity size was dilated. RV dysfunction. - Tricuspid valve: Moderate-severe regurgitation. - Pulmonary arteries: Systolic pressure was severely increased. PA peak pressure: 90mm Hg (S). If LV function is below 40, please consider prescribing an ACEI or ARB or document rationale for non-use. PROCEDURE DATA STUDY STATUS: Elective. Procedure: Transthoracic echocardiography. Image quality was good. Scanning was performed from the parasternal, apical, and subcostal acoustic windows. Study completion: The patient tolerated the procedure well. Transthoracic echocardiography. M-mode, complete 2D, complete spectral Doppler, and color Doppler. Patient status: Inpatient. CARDIAC ANATOMY LEFT VENTRICLE: The cavity size was dilated. Wall thickness was normal. Systolic function was severely reduced. The estimated ejection fraction was 25%. Wall motion was normal; there were no regional wall motion abnormalities. AORTIC VALVE: Trileaflet; moderately thickened leaflets. Doppler: Transvalvular velocity was within the normal range. There was no stenosis. Mild regurgitation. AORTA: Aortic root: The aortic root was normal in size. MITRAL VALVE: Calcified annulus. Doppler: Transvalvular velocity was within the normal range. There was no evidence for stenosis. No regurgitation. LEFT ATRIUM: The atrium was dilated. RIGHT VENTRICLE: The cavity size was dilated. RV dysfunction. PULMONIC VALVE: Doppler: Transvalvular velocity was within the normal range. There was no evidence for stenosis. No regurgitation. TRICUSPID VALVE: Structurally normal valve. Doppler: Transvalvular velocity was within the normal range. Moderate-severe regurgitation. PULMONARY ARTERY: The main pulmonary artery was normal-sized. Systolic pressure was severely increased. RIGHT ATRIUM: The atrium was normal in size. PERICARDIUM: There was no pericardial effusion. SYSTEMIC VEINS: Inferior vena cava: The vessel was normal in size. BASIC MEASUREMENTS ADULT Normal Left ventricle LV internal dimension, ED, chordal level, *59.6 mm 43-52 PLAX LV internal dimension, ES, chordal level, *50.5 mm 23-38 PLAX Fractional shortening, chordal level, PLAX *15 % >29 LV posterior wall thickness, ED 10.9 mm IVS/LVPW ratio, ED 0.98 <1.3 Ventricular septum Septal thickness, ED 10.7 mm Aortic valve Leaflet separation 21 mm 15-26 Left atrium Anterior-posterior dimension 38 mm Right ventricle RV internal dimension, ED, PLAX 34 mm 19-38 BASIC MEASUREMENTS ADULT Normal Aortic valve Leaflet separation 21 mm 15-26 Aorta Root diameter, ED 33 mm 20-37 DOPPLER MEASUREMENTS ADULT Normal Main pulmonary artery Pressure, S *90 mm Hg =30 Tricuspid valve Regurgitant peak velocity 434 cm/s Peak RV-RA gradient, S 75 mm Hg Maximal regurgitant velocity 434 cm/s Systemic veins Estimated CVP 15 mm Hg Right ventricle RV pressure, S *90 mm Hg <30 LEGEND: Mean values are shown as u=mean value. Asterisk (*) snow values outside specified normal range. Prepared and signed by Henrik Thomas [id number]
[2017-02-07 06:16] LABS: AUTOMATED NEUTROPHIL # 6.9 TH/MM3 (1.8-7.7); BASOPHIL # 0.1 TH/MM3 (0-0.2); BASOPHIL % 0.9 % (0.0-2.0); EOSINOPHIL # 0.2 TH/MM3 (0-0.4); EOSINOPHIL % 2.1 % (0.0-4.0); HEMATOCRIT 42.4 % (39.0-51.0); HEMO FLAGS DIFF FINAL; LYMPH % 9.9 % (9.0-44.0); LYMPHOCYTE # 0.9 TH/MM3 (1.0-4.8); MEAN CELL VOLUME 92.1 FL (80.0-100.0); MEAN CORPUSCULAR HGB CONC 33.6 % (32.0-36.0); NEUT % 79.1 % (16.0-70.0); PLATELET COUNT 211 TH/MM3 (150-450); WHITE BLOOD COUNT 8.7 TH/MM3 (4.0-11.0)
[2017-02-07 06:48] LABS: BICARBONATE 23.9 MEQ/L (21.0-32.0); POTASSIUM 5.1 MEQ/L (3.5-5.1)
[2017-02-07] MEDS: DOCUSATE SODIUM 50 MG/SENNA 8.6 MG TAB PO SCH ×2 (09:00→21:00)
[2017-02-07] MEDS: BACITRACIN TOP OINT 15 GM TUBE TOP SCH ×2 (09:00→21:38)
[2017-02-07] MEDS: SODIUM CHLORIDE 0.9% FLUSH 10 ML FLUSH IV FLUSH SCH ×2 (09:00→21:00)
[2017-02-07] MEDS: ASPIRIN 81 MG CHEW TAB CHEW SCH (09:39)
[2017-02-07] MEDS: PRAVASTATIN SOD 40 MG TAB PO SCH (09:39)
[2017-02-07] MEDS: POLYETHYLENE GLYCOL 17 GM PKG PO SCH (09:39)
[2017-02-07] MEDS: PANTOPRAZOLE SODIUM 40 MG VIAL IVP SCH (09:39)
--- NOTE | 2017-02-07 11:23 | EKG ---
Date Performed: 02/05/2017 Time Performed: 12:47:01 PTAGE: 77 years EKG: ELECTRONIC VENTRICULAR PACEMAKER ABNORMAL RHYTHM ECG PREVIOUS TRACING : 02/04/2017 23.48 DOCTOR: Judith Thomas Interpretating Date/Time 02/07/2017 11:20:38
--- NOTE | 2017-02-07 12:04 | PD.CARD.PN ---
Subjective Subjective Remarks patient states his cervical collar was cutting into him so he removed it. Patient requests ascites be drained utilizing his indwelling catheter Objective Medications Current Medications Medications (Trade) Dose Ordered Sig/Carlin Route Start Time Stop Time Status Last Admin (Tylenol) 650 mg Q4H PRN PO 02/05/17 03:15 02/06/17 03:37 (NS Flush) 2 ml BID IV FLUSH 02/05/17 09:00 02/06/17 21:00 (NS Flush) 2 ml UNSCH PRN IVF 02/05/17 03:15 (Tylenol) 650 mg Q6H PRN PO 02/05/17 08:45 (Vasotec Inj) 1.25 mg Q8H PRN IV 02/05/17 08:45 (Zofran Inj) 4 mg Q6H PRN IV 02/05/17 08:45 (Protonix Inj) 40 mg Q24H IVP 02/05/17 08:45 02/07/17 09:39 (Baciguent Oint) 1 applic BID TOP 02/05/17 09:00 02/07/17 09:00 (Aspirin Chew) 81 mg DAILY CHEW 02/06/17 09:00 02/07/17 09:39 Pravastatin Sodium 40 mg 40 mg DAILY PO 02/06/17 09:00 02/07/17 09:39 (Sodium Bicarbonate 8.4% Inj/1/2 NS 1000 ml Inj) 1,050 ml @ 42 mls/hr Q24H IV 02/06/17 12:00 02/06/17 12:00 (Ashley-Colace) 1 tab BID PO 02/07/17 09:00 02/07/17 09:00 (Milk Of Magnesia Liq) 30 ml HS PO 02/07/17 21:00 (Miralax) 17 gm DAILY PO 02/07/17 09:00 02/07/17 09:39 Vital Signs / I&O Vital Signs Date Time Temp Pulse Resp B/P Pulse Ox O2 Delivery O2 Flow Rate FiO2 02/07/17 09:19 94 Nasal Cannula 2.00 02/07/17 08:00 95.0 75 16 98/52 94 02/07/17 04:00 98.7 82 20 95/57 93 02/07/17 04:00 98.7 82 20 95/57 93 02/07/17 00:00 96.9 75 22 101/64 93 02/06/17 20:00 97.4 75 24 92/65 96 02/06/17 20:00 74 02/06/17 16:07 94 Nasal Cannula 1.00 02/06/17 16:00 95.7 75 20 99/61 97 02/06/17 12:00 95.6 75 16 90/57 94 I/O 02/06/17 02/06/17 02/06/17 02/07/17 02/07/17 02/07/17 07:00 15:00 23:00 07:00 15:00 23:00 Intake Total 800 ml 480 ml 1306 ml Output Total 200 ml 400 ml 100 ml Balance 600 ml 80 ml 1206 ml Intake Oral 800 ml 480 ml IV Total 1306 ml Output Urine Total 200 ml 400 ml 100 ml # Bowel Movements 0 Physical Exam Alert, lying supine, no resp distress Neck: no JVD; collar is off. I noted Dr. Cheek and nurse Chest clear anteriorly CV S1 S2 RRR, 2/6 holosystolic murmur Abd : protuberant, umbilical hernia Ext: no edema Laboratory Laboratory Tests Test 02/07/17 05:49 White Blood Count 8.7 TH/MM3 Red Blood Count 4.60 MIL/MM3 Hemoglobin 14.3 GM/DL Hematocrit 42.4 % Mean Corpuscular Volume 92.1 FL Mean Corpuscular Hemoglobin 31.0 PG Mean Corpuscular Hemoglobin 33.6 % Concent Red Cell Distribution Width 17.0 % Platelet Count 211 TH/MM3 Mean Platelet Volume 8.6 FL Neutrophils (%) (Auto) 79.1 % Lymphocytes (%) (Auto) 9.9 % Monocytes (%) (Auto) 8.0 % Eosinophils (%) (Auto) 2.1 % Basophils (%) (Auto) 0.9 % Neutrophils # (Auto) 6.9 TH/MM3 Lymphocytes # (Auto) 0.9 TH/MM3 Monocytes # (Auto) 0.7 TH/MM3 Eosinophils # (Auto) 0.2 TH/MM3 Basophils # (Auto) 0.1 TH/MM3 CBC Comment DIFF FINAL Differential Comment Sodium Level 131 MEQ/L Potassium Level 5.1 MEQ/L Chloride Level 100 MEQ/L Carbon Dioxide Level 23.9 MEQ/L Anion Gap 7 MEQ/L Blood Urea Nitrogen 40 MG/DL Creatinine 1.46 MG/DL Estimat Glomerular Filtration 47 ML/MIN Rate Random Glucose 119 MG/DL Calcium Level 8.4 MG/DL Phosphorus Level 3.4 MG/DL Albumin 1.7 GM/DL Imaging Last 48 hours Impressions Cervical Spine X-Ray 02/06/17 0000 Signed Impressions: Service Date/Time: Monday, February 06, 2017 11:33 - CONCLUSION: 1. There is a small fracture off the anterior endplate of C4 this is unchanged from previous exam. 2. D5/6 level is fused. 3. Advanced degenerative changes at C6/7. Domingo Middleton MD Assessment and Plan Problem List: (1) Fracture of cervical vertebra without spinal cord injury Assessment and Plan: Not wearing his collar. Relayed info to attending and nurse. (2) Forehead abrasion (3) Acute renal failure superimposed on stage 3 chronic kidney disease (4) Fall (5) Dilated cardiomyopathy Assessment and Plan: BP too low to add unloading agent or BB (6) AICD (automatic cardioverter/defibrillator) present Assessment and Plan: no recent VT or VF (7) Hypoalbuminemia (8) Syncope and collapse (9) Atrial fibrillation Assessment and Plan: 100% paced (10) Ascites Assessment and Plan: Spoke to Dr. Cheek. Drainage planned. Assessment and Plan Dr. White to /U Thursday Problem Qualifiers (1) Fracture of cervical vertebra without spinal cord injury: Qualified Code: S12.9XXA - Fracture of cervical vertebra without spinal cord injury, initial encounter (2) Forehead abrasion: Qualified Code: S00.81XA - Forehead abrasion, initial encounter Corey Pond MD Feb 07, 2017 12:04
--- NOTE | 2017-02-07 13:24 | HHI.PR ---
Subjective Subjective Notes PTD: 2 Patient awake, no complaints offered. He will not wear the [place] J collar. He is requesting a blanket. Objective Vitals/I&O Vital Signs Date Time Temp Pulse Resp B/P Pulse Ox O2 Delivery O2 Flow Rate FiO2 02/07/17 12:00 96.3 76 16 99/64 96 02/07/17 09:19 Nasal Cannula 2.00 Labs Laboratory Tests Test 02/07/17 05:49 White Blood Count 8.7 Red Blood Count 4.60 Hemoglobin 14.3 Hematocrit 42.4 Mean Corpuscular Volume 92.1 Mean Corpuscular Hemoglobin 31.0 Mean Corpuscular Hemoglobin 33.6 Concent Red Cell Distribution Width 17.0 Platelet Count 211 Mean Platelet Volume 8.6 Neutrophils (%) (Auto) 79.1 Lymphocytes (%) (Auto) 9.9 Monocytes (%) (Auto) 8.0 Eosinophils (%) (Auto) 2.1 Basophils (%) (Auto) 0.9 Neutrophils # (Auto) 6.9 Lymphocytes # (Auto) 0.9 Monocytes # (Auto) 0.7 Eosinophils # (Auto) 0.2 Basophils # (Auto) 0.1 CBC Comment DIFF FINAL Differential Comment Sodium Level 131 Potassium Level 5.1 Chloride Level 100 Carbon Dioxide Level 23.9 Anion Gap 7 Blood Urea Nitrogen 40 Creatinine 1.46 Estimat Glomerular Filtration 47 Rate Random Glucose 119 Calcium Level 8.4 Phosphorus Level 3.4 Albumin 1.7 Date/Time Procedure Status Source Growth 02/04/17 23:46 Aerobic Blood Culture - Preliminary Resulted Blood Peripheral NO GROWTH IN 2 DAYS 02/04/17 23:46 Anaerobic Blood Culture - Preliminary Resulted Blood Peripheral NO GROWTH IN 2 DAYS Radiology Last Impressions Cervical Spine X-Ray 02/06/17 0000 Signed Impressions: Service Date/Time: Monday, February 06, 2017 11:33 - CONCLUSION: 1. There is a small fracture off the anterior endplate of C4 this is unchanged from previous exam. 2. D5/6 level is fused. 3. Advanced degenerative changes at C6/7. Domingo Middleton MD Pelvis X-Ray 02/04/172340 Signed Impressions: Service Date/Time: January 00:33 - CONCLUSION: No obvious fractures. Prashanth Ca MD Head CT 02/04/172340 Signed Impressions: Service Date/Time: January 01:01 - CONCLUSION: No acute disease. Prashanth Ca MD Chest X-Ray 02/04/172340 Signed Impressions: Service Date/Time: January 00:30 - CONCLUSION: No acute disease. Prashanth Ca MD Cervical Spine CT 02/04/17 2341 Signed Impressions: Service Date/Time: January 01:01 - CONCLUSION: There is an acute teardrop fracture of the anterior-inferior corner of the C4 vertebral body. There is no loss of vertebral body height. There is questionable relative widening of the C4-5 facet joints right greater than left. Associated prevertebral soft tissue swelling. Prashanth Ca MD Narrative Exam GENERAL: This is a 77-year-old male lying in bed. SKIN: Warm and dry. HEAD: Atraumatic. Normocephalic. EYES: PERRLA ENT: No nasal bleeding or discharge. Mucous membranes pink and moist. NECK: Trachea midline. No JVD. CARDIOVASCULAR: Regular rate and rhythm. RESPIRATORY: No accessory muscle use. Lungs are clear to auscultation. Breath sounds equal bilaterally. No distress or dyspnea. GASTROINTESTINAL: BS + x 4 quads. Abdomen soft, non-tender, distended and tympanic. MUSCULOSKELETAL: Extremities without cyanosis, or edema. + peripheral pulses x 4 extremities. Warm with good capillary refill and sensation. MAEW. NEUROLOGICAL: Awake and alert. Normal speech and pattern. A/P Problem List: (1) Fracture of cervical vertebra without spinal cord injury (2) C4 cervical fracture (3) Forehead abrasion (4) Fall (5) Syncope and collapse (6) Dilated cardiomyopathy Assessment and Plan [place]AL[place]: Found down, lethargic. No seizure. Patient recalls the episode stating he got up to use the restroom, felt light headed and fell. Unknown LOC. INJURIES: C4 fx PMHx: CAD, HTN, SVT, defibrillator placement, anxiety, gout, CKD, CHF Consults: Neurosurgery. Hospitalists. Cardiology. Nephrology Diet: Regular Pulmonary: IS Pain: Tylenol Activity: OOB. PT/OT ordered. GI: IV Protonix Bowel: Ashley-colace. MOM. Miralax. LBM: 0 DVT: SCDs Spoke with Dr. Cheek, and he agrees to except patient has attending. Trauma surgery will sign off at this time, please feel free to contact us with any needs. The exam, history, and the medical decision-making described in the above note were completed with the assistance of the mid-level provider. I reviewed and agree with the findings presented. I attest that I had a [id number] encounter with the patient on the same day, and personally performed and documented my assessment and findings in the medical record. Problem Qualifiers (1) Fracture of cervical vertebra without spinal cord injury: Qualified Code: S12.9XXA - Fracture of cervical vertebra without spinal cord injury, initial encounter (2) Forehead abrasion: Qualified Code: S00.81XA - Forehead abrasion, initial encounter Jessica Vines Feb 07, 2017 13:24 Maxi Butler MD Feb 22, 2017 21:23
--- NOTE | 2017-02-07 16:57 | HHI.NPPN ---
Objective Data Data 02/06/17 02/07/17 19:00 07:00 Intake Total 480 ml 1306 ml Output Total 400 ml 100 ml Balance 80 ml 1206 ml Intake Oral 480 ml IV Total 1306 ml Output Urine Total 400 ml 100 ml Vital Signs Date Time Temp Pulse Resp B/P Pulse Ox O2 Delivery O2 Flow Rate FiO2 02/07/17 12:00 96.3 76 16 99/64 96 02/07/17 09:19 94 Nasal Cannula 2.00 02/07/17 08:00 95.0 75 16 98/52 94 02/07/17 07:00 75 02/07/17 04:00 98.7 82 20 95/57 93 02/07/17 04:00 98.7 82 20 95/57 93 02/07/17 00:00 96.9 75 22 101/64 93 02/06/17 20:00 97.4 75 24 92/65 96 02/06/17 20:00 74 -: 02/07/17 0549 02/07/17 0549 Physical Exam General Appearance: Well Developed Neck Neck Exam: Neck Supple Pulmonary Resp Exam: Clear Bilaterally, Breath Sounds Equal Cardiology CV Exam: Regular, Normal Sinus Rhythm Gastrointestinal/Abdomen GI Exam: Soft, Non-Tender, Bowel Sounds Present Extremeties Extremities Exam: No Edema Assessment/Plan Problem List: (1) Acute renal failure superimposed on stage 3 chronic kidney disease Plan: baseline creatinine 1.38, GFR 50 NEEL may be prerenal due to dehydration, \better Cr 1.4 Ascites drained 3 L using catheter stable k 5.1 (2) Fracture of cervical vertebra without spinal cord injury Plan: non surgical management he is in [place] collar, but has removed it at the time of my exam fall precautions (3) Hyponatremia Plan: suspected hypovolemic hypovolemia; although hx of cirrhosis his ascites volume is not as much as usual IVF as above Problem Qualifiers (1) Fracture of cervical vertebra without spinal cord injury: Qualified Code: S12.9XXA - Fracture of cervical vertebra without spinal cord injury, initial encounter Jose Ryan MD Feb 07, 2017 16:57
[2017-02-07] MEDS: SODIUM BICARBONATE 8.4% INJ 50 MEQ in SODIUM CHLOR 0.45% 1000 ML INJ 1,000 ML IV SCH (17:58)
[2017-02-07] MEDS: MAGNESIUM HYDROXIDE SUSP 30 ML CUP PO SCH (21:00)
[2017-02-08] VITALS (11 sets, daily range): BP systolic 93–103; BP diastolic 6–64; PULSE 71–76; RESP 16–20; TEMP 96.4–98.2; O2SAT 93–98
--- NOTE | 2017-02-08 06:47 | HHI.PR ---
Subjective Remarks patient seen this morning around 11 AM. Says he is feeling all right. Denies any chest pain or shortness of breath. no bowel movement yet. Objective Vital Signs Date Time Temp Pulse Resp B/P Pulse Ox O2 Delivery O2 Flow Rate FiO2 02/08/17 06:15 74 99/64 95 02/08/17 04:00 97.5 75 20 93/6 94 02/08/17 00:00 97.4 76 20 100/61 94 02/07/17 23:52 74 02/07/17 21:58 Nasal Cannula 2.00 02/07/17 20:00 97.0 74 20 101/64 96 02/07/17 16:00 97.0 75 17 103/60 96 02/07/17 12:00 96.3 76 16 99/64 96 02/07/17 09:19 94 Nasal Cannula 2.00 02/07/17 08:00 95.0 75 16 98/52 94 02/07/17 07:00 75 I/O 02/07/17 02/07/17 02/07/17 02/08/17 02/08/17 02/08/17 07:00 15:00 23:00 07:00 15:00 23:00 Intake Total 1306 ml 400 ml 120 ml Output Total 100 ml 500 ml 300 ml Balance 1206 ml -100 ml -180 ml Intake Oral 400 ml 120 ml IV Total 1306 ml Output Urine Total 100 ml 500 ml 300 ml # Bowel Movements 1 1 Result Diagram: 02/07/17 0549 02/07/17 0549 Objective Remarks GENERAL: patient lying in bed. Appears comfortable. Cervical collar in place. Alert and oriented 3. SKIN: Warm and dry. HEAD: Normocephalic. EYES: No scleral icterus. No injection or drainage. NECK: Supple, trachea midline. No JVD or lymphadenopathy. CARDIOVASCULAR: Regular rate and rhythm without murmurs, gallops, or rubs. RESPIRATORY: Breath sounds equal bilaterally. No accessory muscle use. GASTROINTESTINAL: Abdomen non-tender.no rebound or guarding. patient with peritoneal catheter as before. Patient's abdomen is now slightly distended. Not tense. Peritoneal catheter in place, with no stranding erythema. Performed noninvasive paracentesis at bedside with straw-colored fluid. MUSCULOSKELETAL: No cyanosis, or edema. BACK: Nontender without obvious deformity. No CVA tenderness. A/P Assessment and Plan //Cervical fracture. Nonoperative management. Patient refuses cervical collar. He is alert and oriented 4. Appreciate neurosurgery assistance. //Suspected Syncope. //History of atrial fibrillation Cardiology following. 2-D echo with severe pulmonary hypertension, ejection fraction 25%. [employer] interrogation. Digoxin level check pending. Antiarrhythmics, blood pressure medications held at this time. -Warfarin heldAC as per surgical service -02/07. Draining 3 L from ascites should help as an alternative to diuresis. Appreciate cardiology assistance. //Hyperlipidemia. Continue pravastatin. //Gout. Holding allopurinol due to kidney failure //Hypokalemia //Renal impairment //Hypernatremia Appreciate nephrology assistance. //Chronic ascites. Patient has peritoneal catheter for the past 5 years. Drains 2-3 L on average every 3 days. -Reports that he does this himself, however this is followed and managed by Dr. Best his analytical tech. -02/07. Patient reports it is now time to drain his ascites. Denies any abdominal pain, just distention. Drained at bedside. -Continue to monitor and drain as necessary, about every few days. //Prophylaxis. As per surgical service. Discharge Planning patient will likely need inpatient rehabilitation. Andrea Cheek MD Feb 08, 2017 06:47
[2017-02-08] MEDS: ACETAMINOPHEN 325 MG TAB PO PRN (07:07)
--- NOTE | 2017-02-08 07:18 | RADRPT ---
EXAM DATE/TIME: 02/08/2017 06:56 [facility] COMPARISON: CHEST SINGLE AP, February 05, 2017, 0:30. INDICATIONS : Shortness of breath and pain. MEDICAL HISTORY : None. SURGICAL HISTORY : Pacemaker. ENCOUNTER: Subsequent ACUITY: 3 days PAIN SCORE: 4/10 LOCATION: Right lower chest FINDINGS: Stable moderate cardiomegaly. Stable prominence of the pulmonary vessels. Dual-lead cardiac device pr esent. Stable left basilar atelectasis. The remainder of the lungs are clear. CONCLUSION: Stable cardiomegaly and congestive heart failure. Stable left basilar atelectasis. Maria R Doyle MD on February 08, 2017 at 7:15 Board Certified Radiologist. This report was verified electronically.
[2017-02-08 07:28] LABS: AUTOMATED NEUTROPHIL # 7.3 TH/MM3 (1.8-7.7); BASOPHIL # 0.1 TH/MM3 (0-0.2); BASOPHIL % 1.1 % (0.0-2.0); EOSINOPHIL # 0.2 TH/MM3 (0-0.4); EOSINOPHIL % 2.3 % (0.0-4.0); HEMATOCRIT 43.1 % (39.0-51.0); HEMO FLAGS DIFF FINAL; LYMPH % 8.2 % (9.0-44.0); LYMPHOCYTE # 0.8 TH/MM3 (1.0-4.8); MEAN CELL VOLUME 92.1 FL (80.0-100.0); MEAN CORPUSCULAR HEMOGLOBIN 31.6 PG (27.0-34.0); MEAN CORPUSCULAR HGB CONC 34.4 % (32.0-36.0); MONO % 8.7 % (0.0-8.0); NEUT % 79.7 % (16.0-70.0); PLATELET COUNT 200 TH/MM3 (150-450); RED BLOOD COUNT 4.67 MIL/MM3 (4.50-5.90); RED CELL DISTRIBUTION WIDTH 16.8 % (11.6-17.2); WHITE BLOOD COUNT 9.2 TH/MM3 (4.0-11.0)
[2017-02-08 07:56] LABS: ALT (GPT) 13 U/L (12-78); ANION GAP 7 MEQ/L (5-15); AST (GOT) 26 U/L (15-37); BICARBONATE 23.8 MEQ/L (21.0-32.0); BLOOD UREA NITROGEN 33 MG/DL (7-18); CHLORIDE 98 MEQ/L (98-107); GLOMERULAR FILTRATION RATE 55 ML/MIN (>89); POTASSIUM 5.1 MEQ/L (3.5-5.1); SODIUM (NA) 129 MEQ/L (136-145)
[2017-02-08 08:10] LABS: ALKALINE PHOSPHATASE 100 U/L (45-117)
[2017-02-08] MEDS: BACITRACIN TOP OINT 15 GM TUBE TOP SCH ×2 (09:00→21:43)
[2017-02-08] MEDS: SODIUM CHLORIDE 0.9% FLUSH 10 ML FLUSH IV FLUSH SCH ×2 (09:00→21:00)
[2017-02-08] MEDS: POLYETHYLENE GLYCOL 17 GM PKG PO SCH (09:00)
[2017-02-08] MEDS: DOCUSATE SODIUM 50 MG/SENNA 8.6 MG TAB PO SCH ×2 (09:25→21:00)
[2017-02-08] MEDS: ASPIRIN 81 MG CHEW TAB CHEW SCH (09:25)
[2017-02-08] MEDS: PRAVASTATIN SOD 40 MG TAB PO SCH (09:25)
--- NOTE | 2017-02-08 09:54 | PD.CARD.PN ---
Subjective Subjective Remarks c/o left sided chest pain and he has point tenderness left lower lateral rib area. Also c/o SOB Objective Medications Current Medications Medications (Trade) Dose Ordered Sig/Carlin Route Start Time Stop Time Status Last Admin (Tylenol) 650 mg Q4H PRN PO 02/05/17 03:15 02/08/17 07:07 (NS Flush) 2 ml BID IV FLUSH 02/05/17 09:00 02/06/17 21:00 (NS Flush) 2 ml UNSCH PRN IVF 02/05/17 03:15 (Tylenol) 650 mg Q6H PRN PO 02/05/17 08:45 (Vasotec Inj) 1.25 mg Q8H PRN IV 02/05/17 08:45 (Zofran Inj) 4 mg Q6H PRN IV 02/05/17 08:45 (Protonix Inj) 40 mg Q24H IVP 02/05/17 08:45 02/07/17 09:39 (Baciguent Oint) 1 applic BID TOP 02/05/17 09:00 02/08/17 09:00 (Aspirin Chew) 81 mg DAILY CHEW 02/06/17 09:00 02/08/17 09:25 Pravastatin Sodium 40 mg 40 mg DAILY PO 02/06/17 09:00 02/08/17 09:25 (Sodium Bicarbonate 8.4% Inj/1/2 NS 1000 ml Inj) 1,050 ml @ 42 mls/hr Q24H IV 02/06/17 12:00 02/07/17 17:58 (Ashley-Colace) 1 tab BID PO 02/07/17 09:00 02/08/17 09:25 (Milk Of Magnesia Liq) 30 ml HS PO 02/07/17 21:00 (Miralax) 17 gm DAILY PO 02/07/17 09:00 02/07/17 09:39 Vital Signs / I&O Vital Signs Date Time Temp Pulse Resp B/P Pulse Ox O2 Delivery O2 Flow Rate FiO2 02/08/17 08:00 96.6 74 16 98/63 97 02/08/17 06:15 74 99/64 95 02/08/17 04:00 97.5 75 20 93/6 94 02/08/17 00:00 97.4 76 20 100/61 94 02/07/17 23:52 74 3/25/17 21:58 Nasal Cannula 2.00 02/07/17 20:00 97.0 74 20 101/64 96 02/07/17 16:00 97.0 75 17 103/60 96 02/07/17 12:00 96.3 76 16 99/64 96 I/O 02/07/17 02/07/17 02/07/17 02/08/17 02/08/17 02/08/17 07:00 15:00 23:00 07:00 15:00 23:00 Intake Total 1306 ml 400 ml 120 ml Output Total 100 ml 500 ml 300 ml Balance 1206 ml -100 ml -180 ml Intake Oral 400 ml 120 ml IV Total 1306 ml Output Urine Total 100 ml 500 ml 300 ml # Bowel Movements 1 1 Physical Exam Alert, lying supine, no resp distress Neck: no JVD; collar is off. Chest clear to ausculation CV S1 S2 RRR, 2/6 holosystolic murmur Abd : less protuberant s/p drainage, umbilical hernia Ext: severe venous stasis changes with trace edema Laboratory Laboratory Tests Test 02/08/17 07:15 White Blood Count 9.2 TH/MM3 Red Blood Count 4.67 MIL/MM3 Hemoglobin 14.8 GM/DL Hematocrit 43.1 % Mean Corpuscular Volume 92.1 FL Mean Corpuscular Hemoglobin 31.6 PG Mean Corpuscular Hemoglobin 34.4 % Concent Red Cell Distribution Width 16.8 % Platelet Count 200 TH/MM3 Mean Platelet Volume 8.5 FL Neutrophils (%) (Auto) 79.7 % Lymphocytes (%) (Auto) 8.2 % Monocytes (%) (Auto) 8.7 % Eosinophils (%) (Auto) 2.3 % Basophils (%) (Auto) 1.1 % Neutrophils # (Auto) 7.3 TH/MM3 Lymphocytes # (Auto) 0.8 TH/MM3 Monocytes # (Auto) 0.8 TH/MM3 Eosinophils # (Auto) 0.2 TH/MM3 Basophils # (Auto) 0.1 TH/MM3 CBC Comment DIFF FINAL Differential Comment Sodium Level 129 MEQ/L Potassium Level 5.1 MEQ/L Chloride Level 98 MEQ/L Carbon Dioxide Level 23.8 MEQ/L Anion Gap 7 MEQ/L Blood Urea Nitrogen 33 MG/DL Creatinine 1.28 MG/DL Estimat Glomerular Filtration 55 ML/MIN Rate Random Glucose 108 MG/DL Calcium Level 8.3 MG/DL Total Bilirubin 1.0 MG/DL Aspartate Amino Transf 26 U/L (AST/SGOT) Alanine Aminotransferase 13 U/L (ALT/SGPT) Alkaline Phosphatase 100 U/L Total Creatine Kinase 32 U/L Troponin I 0.04 NG/ML Total Protein 4.8 GM/DL Albumin 1.9 GM/DL Digoxin Level 1.0 NG/ML Imaging Last 48 hours Impressions Chest X-Ray 02/08/17 0000 Signed Impressions: Service Date/Time: Wednesday, February 08, 2017 06:56 - CONCLUSION: Stable cardiomegaly and congestive heart failure. Stable left basilar atelectasis. Maria R Doyle MD Assessment and Plan Problem List: (1) Fracture of cervical vertebra without spinal cord injury (2) Forehead abrasion (3) Acute renal failure superimposed on stage 3 chronic kidney disease (4) Fall (5) Dilated cardiomyopathy Assessment and Plan: severe. BP staying in 90's without any ACEI or BB (6) AICD (automatic cardioverter/defibrillator) present (7) Hypoalbuminemia (8) Syncope and collapse (9) Atrial fibrillation Assessment and Plan: seems too frail for anticoagulation (10) Ascites (11) Dyspnea Assessment and Plan: I stopped his IV fluids to prevent CHF. Creatinine improved (12) Pleurisy Assessment and Plan: left sided. Suspect rib contusion Assessment and Plan Dr. White to F/U Thursday Problem Qualifiers (1) Fracture of cervical vertebra without spinal cord injury: Qualified Code: S12.9XXA - Fracture of cervical vertebra without spinal cord injury, initial encounter (2) Forehead abrasion: Qualified Code: S00.81XA - Forehead abrasion, initial encounter Corey Pond MD Feb 08, 2017 09:54
--- NOTE | 2017-02-08 16:03 | EKG ---
Date Performed: 02/08/2017 Time Performed: 06:36:26 PTAGE: 77 years EKG: Atrial fibrillation with 100% ventricular pacing Compared to prior tracing no significant c julio Abnormal ECG PREVIOUS TRACING : 02/05/2017 12.47 DOCTOR: Corey Pond Interpretating Date/Time 02/08/2017 16:02:11
--- NOTE | 2017-02-08 16:17 | HHI.NPPN ---
Objective Data Data 02/07/17 02/08/17 19:00 07:00 Intake Total 400 ml 120 ml Output Total 500 ml 300 ml Balance -100 ml -180 ml Intake Oral 400 ml 120 ml Output Urine Total 500 ml 300 ml # Bowel Movements 1 1 Vital Signs Date Time Temp Pulse Resp B/P Pulse Ox O2 Delivery O2 Flow Rate FiO2 02/08/17 12:00 98.2 71 20 97/48 98 02/08/17 10:48 93 Nasal Cannula 3.00 02/08/17 08:00 96.6 74 16 98/63 97 02/08/17 07:00 74 02/08/17 06:15 74 99/64 95 02/08/17 04:00 97.5 75 20 93/6 94 02/08/17 00:00 97.4 76 20 100/61 94 02/07/17 23:52 74 02/07/17 21:58 Nasal Cannula 2.00 02/07/17 20:00 97.0 74 20 101/64 96 -: 02/08/17 0715 02/08/17 0715 Physical Exam General Appearance: Well Developed Neck Neck Exam: Neck Supple Pulmonary Resp Exam: Clear Bilaterally, Breath Sounds Equal Cardiology CV Exam: Regular, Normal Sinus Rhythm Gastrointestinal/Abdomen GI Exam: Soft, Non-Tender, Bowel Sounds Present Extremeties Extremities Exam: No Edema Assessment/Plan Problem List: (1) Acute renal failure superimposed on stage 3 chronic kidney disease Plan: baseline creatinine 1.38, GFR 50 NEEL may be prerenal due to dehydration, \better Cr 1.28 improved Ascites drained as needed using catheter stable k 5.1 (2) Fracture of cervical vertebra without spinal cord injury Plan: non surgical management he is in [place] collar, but has removed it at the time of my exam fall precautions (3) Hyponatremia Plan: suspected hypovolemic hypovolemia; although hx of cirrhosis his ascites volume is not as much as usual IVF as above Problem Qualifiers (1) Fracture of cervical vertebra without spinal cord injury: Qualified Code: S12.9XXA - Fracture of cervical vertebra without spinal cord injury, initial encounter Jose Ryan MD Feb 08, 2017 16:17
[2017-02-08] MEDS ORDERED: ENOXAPARIN SODIUM 30 MG/0.3 ML SYRINGE SQ SCH (17:00)
[2017-02-08] MEDS: MAGNESIUM HYDROXIDE SUSP 30 ML CUP PO SCH (21:00)
--- NOTE | 2017-02-08 23:09 | HHI.PR ---
Subjective Remarks Late entry. Patient seen this morning Patient reports pleuritic left-sided chest pain, as well as some shortness of breath this morning. Denies any nausea or vomiting. Reports abdomen comfortable after drainage is noted. Objective Vital Signs Date Time Temp Pulse Resp B/P Pulse Ox O2 Delivery O2 Flow Rate FiO2 02/08/17 20:00 96.4 75 18 103/64 98 02/08/17 16:00 96.5 73 18 102/61 97 02/08/17 12:00 98.2 71 20 97/48 98 02/08/17 10:48 93 Nasal Cannula 3.00 02/08/17 08:00 96.6 74 16 98/63 97 02/08/17 07:00 74 02/08/17 06:15 74 99/64 95 02/08/17 04:00 97.5 75 20 93/6 94 02/08/17 00:00 97.4 76 20 100/61 94 02/07/17 23:52 74 I/O 02/07/17 02/07/17 02/07/17 02/08/17 02/08/17 02/08/17 07:00 15:00 23:00 07:00 15:00 23:00 Intake Total 1306 ml 400 ml 120 ml 240 ml Output Total 100 ml 500 ml 300 ml 500 ml Balance 1206 ml -100 ml -180 ml -260 ml Intake Oral 400 ml 120 ml 240 ml IV Total 1306 ml Output Urine Total 100 ml 500 ml 300 ml 500 ml # Bowel Movements 1 1 0 Result Diagram: 02/08/1715 02/08/1715 Objective Remarks GENERAL: patient lying in bed. Appears comfortable. patient without cervical collar.Alert and oriented 3. SKIN: Warm and dry. HEAD: Normocephalic. EYES: No scleral icterus. No injection or drainage. NECK: Supple, trachea midline. No JVD or lymphadenopathy. CARDIOVASCULAR: Regular rate and rhythm without murmurs, gallops, or rubs. RESPIRATORY: Breath sounds equal bilaterally. No accessory muscle use. GASTROINTESTINAL: Abdomen soft, nontender, nondistended. No rebound or guarding. Peritoneal catheter in place, with no surrounding erythema. MUSCULOSKELETAL: No cyanosis, or edema. BACK: Nontender without obvious deformity. No CVA tenderness. A/P Assessment and Plan //Cervical fracture. Nonoperative management. Patient refuses cervical collar. He is alert and oriented 4. Appreciate neurosurgery assistance. //Suspected Syncope. //History of atrial fibrillation Cardiology following. 2-D echo with severe pulmonary hypertension, ejection fraction 25%. WizIQtr[employer] interrogation. Digoxin level 1.0 on 02/07 several days after admission. -Antiarrhythmics, blood pressure medications held at this time. -Warfarin heldAC as per surgical service -02/07. Draining 3 L from ascites should help as an alternative to diuresis. Appreciate cardiology assistance. //Pleuritic chest pain 02/08. This is likely secondary to rib pain versus reexpansion of atelectasis after drainage of ascites fluid. D-dimer elevated Chest x-ray with left basilar atelectasis as before -Acapella and incentive spirometer -Patient does have pretty significant pulmonary hypertension on echocardiogram. -Bilateral lower extremity ultrasounds. //Hyperlipidemia. Continue pravastatin. //Gout. Holding allopurinol due to kidney failure //Hypokalemia //Renal impairment //Hypernatremia Appreciate nephrology assistance. //Chronic ascites. Patient has peritoneal catheter for the past 5 years. Drains 2-3 L on average every 3 days. -Reports that he does this himself, however this is followed and managed by Dr. Best his medical asst. -02/07. Patient reports it is now time to drain his ascites. Denies any abdominal pain, just distention. Drained at bedside. -Continue to monitor and drain as necessary, about every few days. //Prophylaxis. As per surgical service. Discharge Planning patient will likely need inpatient rehabilitation. Discharge Planning patient will likely need inpatient rehabilitation. Andrea Cheek MD Feb 08, 2017 23:08
[2017-02-09] VITALS: BP 96/58; PULSE 75; RESP 18; TEMP 96.7; O2SAT 94
[2017-02-09 04:00] VITALS: BP 103/66; PULSE 75; RESP 18; TEMP 96.1; O2SAT 98
[2017-02-09 07:00] VITALS: PULSE 74
[2017-02-09 08:14] LABS: AUTOMATED NEUTROPHIL # 6.9 TH/MM3 (1.8-7.7); BASOPHIL # 0.1 TH/MM3 (0-0.2); BASOPHIL % 1.5 % (0.0-2.0); EOSINOPHIL # 0.2 TH/MM3 (0-0.4); EOSINOPHIL % 2.4 % (0.0-4.0); HEMATOCRIT 45.7 % (39.0-51.0); HEMO FLAGS DIFF FINAL; LYMPH % 11.5 % (9.0-44.0); MEAN CELL VOLUME 93.6 FL (80.0-100.0); MEAN CORPUSCULAR HEMOGLOBIN 30.4 PG (27.0-34.0); MEAN CORPUSCULAR HGB CONC 32.5 % (32.0-36.0); MONO % 7.8 % (0.0-8.0); NEUT % 76.8 % (16.0-70.0); PLATELET COUNT 193 TH/MM3 (150-450); RED BLOOD COUNT 4.88 MIL/MM3 (4.50-5.90); RED CELL DISTRIBUTION WIDTH 16.7 % (11.6-17.2)
[2017-02-09 08:28] LABS: POTASSIUM 5.1 MEQ/L (3.5-5.1)
[2017-02-09 08:55] VITALS: O2SAT 95
--- NOTE | 2017-02-09 08:57 | PD.CARD.PN ---
Subjective Subjective Remarks No chest pain this morning, shortness of breath stable Objective Medications Current Medications Medications (Trade) Dose Ordered Sig/Carlin Route Start Time Stop Time Status Last Admin (Tylenol) 650 mg Q4H PRN PO 02/05/17 03:15 02/08/17 07:07 (NS Flush) 2 ml BID IV FLUSH 02/05/17 09:00 02/08/17 21:00 (NS Flush) 2 ml UNSCH PRN IVF 02/05/17 03:15 (Tylenol) 650 mg Q6H PRN PO 02/05/17 08:45 (Vasotec Inj) 1.25 mg Q8H PRN IV 02/05/17 08:45 (Zofran Inj) 4 mg Q6H PRN IV 02/05/17 08:45 (Protonix Inj) 40 mg Q24H IVP 02/05/17 08:45 02/07/17 09:39 (Baciguent Oint) 1 applic BID TOP 02/05/17 09:00 02/08/17 21:43 (Aspirin Chew) 81 mg DAILY CHEW 02/06/17 09:00 02/08/17 09:25 (Pravachol) 40 mg DAILY PO 02/06/17 09:00 02/08/17 09:25 (Ashley-Colace) 1 tab BID PO 02/07/17 09:00 02/08/17 09:25 (Milk Of Magnesia Liq) 30 ml HS PO 02/07/17 21:00 (Miralax) 17 gm DAILY PO 02/07/17 09:00 02/07/17 09:39 (Lovenox Inj) 30 mg Q24H SQ 02/08/17 17:00 02/08/17 17:00 Vital Signs / I&O Vital Signs Date Time Temp Pulse Resp B/P Pulse Ox O2 Delivery O2 Flow Rate FiO2 02/09/17 04:00 96.1 75 18 103/66 98 02/09/17 00:00 96.7 75 18 96/58 94 02/08/17 23:10 74 02/08/17 21:58 98 Nasal Cannula 3.00 02/08/17 20:00 96.4 75 18 103/64 98 02/08/17 16:00 96.5 73 18 102/61 97 02/08/17 12:00 98.2 71 20 97/48 98 02/08/17 10:48 93 Nasal Cannula 3.00 I/O 02/08/17 02/08/17 02/08/17 02/09/17 02/09/17 02/09/17 07:00 15:00 23:00 07:00 15:00 23:00 Intake Total 120 ml 240 ml 300 ml 300 ml Output Total 300 ml 500 ml 650 ml Balance -180 ml -260 ml 300 ml -350 ml Intake Oral 120 ml 240 ml 300 ml 300 ml Output Urine Total 300 ml 500 ml 650 ml # Bowel Movements 1 0 1 2 Physical Exam GENERAL: NAD, AAOx3 SKIN: Warm and dry. HEAD: Cut across forehead. Normocephalic. EYES: Pupils equal and round. No scleral icterus. No injection or drainage. ENT: No nasal bleeding or discharge. Mucous membranes pink and moist. NECK: Trachea midline. No JVD. CARDIOVASCULAR: Regular rate and rhythm. RESPIRATORY: No accessory muscle use. Decreased breath sounds bilaterally GASTROINTESTINAL: Abdomen soft, non-tender, nondistended. Hepatic and splenic margins not palpable. MUSCULOSKELETAL: Trace edema bilaterally NEUROLOGICAL: Awake and alert. No obvious cranial nerve deficits. Motor grossly within normal limits. Five out of 5 muscle strength in the arms and legs. Normal speech. PSYCHIATRIC: Appropriate mood and affect; insight and judgment normal. Laboratory Laboratory Tests Test 02/08/17 02/08/17 02/09/17 13:15 19:02 07:30 Troponin I 0.04 NG/ML 0.04 NG/ML D-Dimer Quantitative (PE/DVT) 1.86 MG/L FEU White Blood Count 9.0 TH/MM3 Red Blood Count 4.88 MIL/MM3 Hemoglobin 14.9 GM/DL Hematocrit 45.7 % Mean Corpuscular Volume 93.6 FL Mean Corpuscular Hemoglobin 30.4 PG Mean Corpuscular Hemoglobin 32.5 % Concent Red Cell Distribution Width 16.7 % Platelet Count 193 TH/MM3 Mean Platelet Volume 8.9 FL Neutrophils (%) (Auto) 76.8 % Lymphocytes (%) (Auto) 11.5 % Monocytes (%) (Auto) 7.8 % Eosinophils (%) (Auto) 2.4 % Basophils (%) (Auto) 1.5 % Neutrophils # (Auto) 6.9 TH/MM3 Lymphocytes # (Auto) 1.0 TH/MM3 Monocytes # (Auto) 0.7 TH/MM3 Eosinophils # (Auto) 0.2 TH/MM3 Basophils # (Auto) 0.1 TH/MM3 CBC Comment DIFF FINAL Differential Comment Sodium Level 129 MEQ/L Potassium Level 5.1 MEQ/L Chloride Level 97 MEQ/L Carbon Dioxide Level 24.0 MEQ/L Anion Gap 8 MEQ/L Blood Urea Nitrogen 31 MG/DL Creatinine 1.22 MG/DL Estimat Glomerular Filtration 58 ML/MIN Rate Random Glucose 102 MG/DL Calcium Level 8.5 MG/DL Assessment and Plan Problem List: (1) Fracture of cervical vertebra without spinal cord injury (2) Forehead abrasion (3) Acute renal failure superimposed on stage 3 chronic kidney disease (4) Fall (5) Dilated cardiomyopathy (6) AICD (automatic cardioverter/defibrillator) present (7) Hypoalbuminemia (8) Syncope and collapse (9) Atrial fibrillation (10) Ascites (11) Dyspnea (12) Pleurisy Assessment and Plan 1) Question of syncope vs fall, may be due to orthostatic hypotension with dehydration after getting out of bed to use the bathroom 2) Blood pressure usually runs in the 90-100 range per the patient, Coreg/MALIK-I/ Dig/Sotalol stopped 3) Will most likely need to stay off MALIK-I for now, if blood pressure is better would restart Coreg first... Will hold off for the time being with current BP... Would not restart Sotalol with EF 25% unless necessary, if Afib with RVR then Digoxin 4) No events noted on Telemetry 5) Interrogation of Medtronic ICD showing no events 6) EF 25%, mild AR, mod-sev TR 7) Chest pain over the weekend, pleuritic in nature 8) Due to frailty and his fall, will hold off on restarting anticoagulation... if after rehab the patient is stronger on his feet, then consideration could be made for restarting outpatient Problem Qualifiers (1) Fracture of cervical vertebra without spinal cord injury: Qualified Code: S12.9XXA - Fracture of cervical vertebra without spinal cord injury, initial encounter (2) Forehead abrasion: Qualified Code: S00.81XA - Forehead abrasion, initial encounter Mateus White DO Feb 09, 2017 08:57
[2017-02-09] MEDS: SODIUM CHLORIDE 0.9% FLUSH 10 ML FLUSH IV FLUSH SCH (09:00)
[2017-02-09] MEDS: DOCUSATE SODIUM 50 MG/SENNA 8.6 MG TAB PO SCH (09:00)
[2017-02-09] MEDS: POLYETHYLENE GLYCOL 17 GM PKG PO SCH (09:00)
[2017-02-09 09:31] VITALS: BP 107/65; PULSE 74; RESP 20; TEMP 96.3; O2SAT 97
[2017-02-09] MEDS: PRAVASTATIN SOD 40 MG TAB PO SCH (09:49)
[2017-02-09] MEDS: ASPIRIN 81 MG CHEW TAB CHEW SCH (09:50)
[2017-02-09] MEDS: PANTOPRAZOLE SODIUM 40 MG VIAL IVP SCH (09:50)
[2017-02-09] MEDS: BACITRACIN TOP OINT 15 GM TUBE TOP SCH (09:51)
[2017-02-09] MEDS ORDERED: DIGOXIN 0.125 MG TAB PO SCH (11:00)
--- NOTE | 2017-02-09 11:04 | HHI.PR ---
Subjective Remarks Patient denies any chest pain today. Reports shortness of breath has improved. Has any nausea or vomiting. Had bowel movement yesterday. Bilateral feet are cold to touch. Patient reports this is chronic. Ultrasound team be in room, and i verified popliteal, posterior tibial, pedal pulses. Objective Vital Signs Date Time Temp Pulse Resp B/P Pulse Ox O2 Delivery O2 Flow Rate FiO2 02/09/17 09:31 96.3 74 20 107/65 97 02/09/17 08:55 95 Nasal Cannula 2.00 02/09/17 04:00 96.1 75 18 103/66 98 02/09/17 00:00 96.7 75 18 96/58 94 02/08/17 23:10 74 02/08/17 21:58 98 Nasal Cannula 3.00 02/08/17 20:00 96.4 75 18 103/64 98 02/08/17 16:00 96.5 73 18 102/61 97 02/08/17 12:00 98.2 71 20 97/48 98 I/O 02/08/17 02/08/17 02/08/17 02/09/17 02/09/17 02/09/17 07:00 15:00 23:00 07:00 15:00 23:00 Intake Total 120 ml 240 ml 300 ml 300 ml Output Total 300 ml 500 ml 650 ml Balance -180 ml -260 ml 300 ml -350 ml Intake Oral 120 ml 240 ml 300 ml 300 ml Output Urine Total 300 ml 500 ml 650 ml # Bowel Movements 1 0 1 2 1 Result Diagram: 02/09/1730 02/09/17 0730 Objective Remarks GENERAL: patient lying in bed. Appears comfortable. patient without cervical collar.Alert and oriented 3. SKIN: Warm and dry. HEAD: Normocephalic. EYES: No scleral icterus. No injection or drainage. NECK: Supple, trachea midline. No JVD or lymphadenopathy. CARDIOVASCULAR: Regular rate and rhythm without murmurs, gallops, or rubs. RESPIRATORY: Breath sounds equal bilaterally. No accessory muscle use. GASTROINTESTINAL: Abdomen soft, nontender, nondistended. No rebound or guarding. Peritoneal catheter in place, with no surrounding erythema. MUSCULOSKELETAL: No edema. Bilateral feet appear cold, with slow capillary refill. Sensation intact. Peripheral pulses verified on Doppler. BACK: Nontender without obvious deformity. No CVA tenderness. A/P Assessment and Plan //Cervical fracture. Nonoperative management. Patient refuses cervical collar. He is alert and oriented 4. Appreciate neurosurgery assistance. //Suspected Syncope. //History of atrial fibrillation Cardiology following. 2-D echo with severe pulmonary hypertension, ejection fraction 25%. Pathology Holdingstronic interrogation. Digoxin level 1.0 on 02/07 several days after admission. -Antiarrhythmics, blood pressure medications held at this time. -Warfarin heldAC as per surgical service -02/07. Draining 3 L from ascites should help as an alternative to diuresis. Appreciate cardiology assistance. -02/09 Or cardiology, will place on digoxin 0.125 mg daily. Fibrillation with RVR, recommend by mouth loading regimen. //Pleuritic chest pain 02/08. This is likely secondary to rib pain versus reexpansion of atelectasis after drainage of ascites fluid. D-dimer elevated Chest x-ray with left basilar atelectasis as before -Acapella and incentive spirometer -Patient does have pretty significant pulmonary hypertension on echocardiogram. -Patient has been on warfarin past, however in the past appears to have an subtherapeutic -Bilateral lower extremity ultrasounds. -L lower extremity Dopplers pending Discussed with cardiology. We'll order VQ scan. If indicated, will place patient back on warfarin. //Hyperlipidemia. Continue pravastatin. //Gout. Holding allopurinol due to kidney failure //Hypokalemia //Renal impairment //Hypernatremia -Renal failure much improved. -IV fluids stopped by cardiology. Appreciate nephrology assistance. //Chronic ascites. //History of cirrhosis Patient has peritoneal catheter for the past 5 years. Drains 2-3 L on average every 3 days. -Reports that he does this himself, however this is followed and managed by Dr. Best his roller inspector. -02/07. Patient reports it is now time to drain his ascites. Denies any abdominal pain, just distention. Drained at bedside. -Continue to monitor and drain at least 3 L every 3 days. //Prophylaxis. Low-dose Lovenox. Discharge Planning Discharge Planning -If bilateral lower extremity Dopplers are negative for DVT, patient can be discharged to [place]. -Patient will need drainage of ascites 3-4 L from chronic peritoneal catheter every 3 days -Discharged inpatient rehabilitation, pending cardiology clearance. Andrea Cheek MD Feb 09, 2017 11:04
[2017-02-09] MEDS ORDERED: DIGO0.12 PO (11:09)
[2017-02-09] MEDS ORDERED: SENN1TAB PO (11:09)
[2017-02-09] MEDS ORDERED: ALLO300T2 PO (11:09)
[2017-02-09] MEDS ORDERED: ENOX30P SQ (11:22)
--- NOTE | 2017-02-09 11:35 | HHI.DS ---
Discharge Summary Admission Date Feb 05, 2017 at 03:11 Discharge Date: Feb 09, 2017 Admitting Diagnosis fracture cervical spine. (1) Hyponatremia ICD Code: E87.1 (2) Syncope and collapse ICD Code: R55 (3) Dilated cardiomyopathy ICD Code: I42.0 (4) Ascites ICD Code: R18.8 (5) Atrial fibrillation ICD Code: I48.91 (6) Acute renal failure superimposed on stage 3 chronic kidney disease ICD Code: N17.9 (7) AICD (automatic cardioverter/defibrillator) present ICD Code: Z95.810 Procedures No invasive procedures. Brief History - From Admission 77-year-old male with a history of chronic kidney disease stage III, hypertension, CAD, CHF, atrial flutter on warfarin, digoxin, Status post defibrillator placement, chronic abdominal ascites which is drained every few days, who presents to the ER after being found down. Patient reports that he got up quickly to go use the restroom, and blacked out, waking up shortly thereafter. He is felt to have cervical fracture, and has collar in place. He has received pain medications in the ER, and is quite somnolent, however wakes for exam. He reports feeling all right. Reports pain is controlled. Denies any chest pain or shortness of breath. He denies having any fevers, chills, nausea, vomiting, diarrhea. He reports previously feeling fine. CBC/BMP: 02/09/17 0730 02/09/17 0730 Significant Findings Laboratory Tests Test 02/07/17 02/08/17 02/08/17 02/09/17 05:49 07:15 19:02 07:30 Neutrophils (%) (Auto) 79.1 % 79.7 % 76.8 % (16.0-70.0) (16.0-70.0) (16.0-70.0) Lymphocytes # (Auto) 0.9 TH/MM3 0.8 TH/MM3 (1.0-4.8) (1.0-4.8) Sodium Level 131 MEQ/L 129 MEQ/L 129 MEQ/L (136-145) (136-145) (136-145) Blood Urea Nitrogen 40 MG/DL (7-18) 33 MG/DL (7-18) 31 MG/DL (7-18) Creatinine 1.46 MG/DL (0.60-1.30) Estimat Glomerular Filtration 47 ML/MIN (>89) 55 ML/MIN (>89) 58 ML/MIN (>89) Rate Random Glucose 119 MG/DL 108 MG/DL (74-106) (74-106) Calcium Level 8.4 MG/DL 8.3 MG/DL (8.5-10.1) (8.5-10.1) Albumin 1.7 GM/DL 1.9 GM/DL (3.4-5.0) (3.4-5.0) Lymphocytes (%) (Auto) 8.2 % (9.0-44.0) Monocytes (%) (Auto) 8.7 % (0.0-8.0) Total Creatine Kinase 32 U/L (39-308) Total Protein 4.8 GM/DL (6.4-8.2) D-Dimer Quantitative (PE/DVT) 1.86 MG/L FEU (0.00-0.50) Chloride Level 97 MEQ/L (98-107) Imaging Last Impressions Chest X-Ray 02/08/17 0000 Signed Impressions: Service Date/Time: Wednesday, February 08, 2017 06:56 - CONCLUSION: Stable cardiomegaly and congestive heart failure. Stable left basilar atelectasis. Maria R Doyle MD Cervical Spine X-Ray 02/06/17 0000 Signed Impressions: Service Date/Time: Monday, February 06, 2017 11:33 - CONCLUSION: 1. There is a small fracture off the anterior endplate of C4 this is unchanged from previous exam. 2. D5/6 level is fused. 3. Advanced degenerative changes at C6/7. Domingo Middleton MD Pelvis X-Ray 02/04/171 Signed Impressions: Service Date/Time: January 00:33 - CONCLUSION: No obvious fractures. Prashanth Ca MD Head CT 02/04/171 Signed Impressions: Service Date/Time: January 01:01 - CONCLUSION: No acute disease. Prashanth Ca MD Cervical Spine CT 02/04/17 2341 Signed Impressions: Service Date/Time: January 01:01 - CONCLUSION: There is an acute teardrop fracture of the anterior-inferior corner of the C4 vertebral body. There is no loss of vertebral body height. There is questionable relative widening of the C4-5 facet joints right greater than left. Associated prevertebral soft tissue swelling. Prashanth Ca MD Hospital Course Patient was confused on admission secondary to pain meds, however this improved off of narcotics. Patient was found to have acute teardrop fracture of the anterior inferior corner of the C4 vertebral body. Neurosurgery was consulted, placed cervical collar, however patient has subsequently refused to wear this. Patient was found to be in renal failure with creatinine 1.56 on admission. Nephrology was consulted, and this improved with low rate IV fluids. Cardiology was consulted for syncopal episode, and discontinued all antiarrhythmics blood pressure medications, however digoxin will be continued at lower dose. Echocardiogram with ejection fraction 5%, however RVSP of 90 mmHg. Patient has chronic ascites, chronic peritoneal drainage catheter, which he drains 3 L every 3 days. This was drained once during hospitalization. After drainage of 3 L of ascites fluid, patient developed left sided pleuritic chest pain. Troponins 0.04 and stable, EKGs with no changes. D-dimer was elevated, 1.8, patient unable to do VQ scan, and CT pulmonary angiogram risky in light of renal insufficiency. Considered holding warfarin due to patient's fall risk, however with discontinuation of blood pressure medications syncope should be less likely to patient's combined risk of stroke from atrial fibrillation, as well as thromboembolic disease in the setting of severe pulmonary hypertension, decided to continue on therapeutic warfarin. For problem-based summary from most recent progress note, please see below. //Cervical fracture. Nonoperative management. Patient refuses cervical collar. He is alert and oriented 4. Appreciate neurosurgery assistance. //Suspected Syncope. //History of atrial fibrillation Cardiology following. 2-D echo with severe pulmonary hypertension, ejection fraction 25%. Soil IQtronic interrogation. Digoxin level 1.0 on 02/07 several days after admission. -Antiarrhythmics, blood pressure medications held at this time. -Warfarin heldAC as per surgical service -02/07. Draining 3 L from ascites should help as an alternative to diuresis. Appreciate cardiology assistance. -02/09 Or cardiology, will place on digoxin 0.125 mg daily. Fibrillation with RVR, recommend by mouth loading regimen. //Pleuritic chest pain 02/08. This is likely secondary to rib pain versus reexpansion of atelectasis after drainage of ascites fluid. D-dimer elevated Chest x-ray with left basilar atelectasis as before -[employer] and incentive spirometer -Patient does have pretty significant pulmonary hypertension on echocardiogram. -Patient has been on warfarin past, however in the past appears to have an subtherapeutic -Bilateral lower extremity ultrasounds. -L lower extremity Dopplers pending Discussed with cardiology. We'll order VQ scan. If indicated, will place patient back on warfarin. //Hyperlipidemia. Continue pravastatin. //Gout. Holding allopurinol due to kidney failure //Hypokalemia //Renal impairment //Hypernatremia -Renal failure much improved. -IV fluids stopped by cardiology. Appreciate nephrology assistance. //Chronic ascites. //History of cirrhosis Patient has peritoneal catheter for the past 5 years. Drains 2-3 L on average every 3 days. -Reports that he does this himself, however this is followed and managed by Dr. Best his song writer. -02/07. Patient reports it is now time to drain his ascites. Denies any abdominal pain, just distention. Drained at bedside. -Continue to monitor and drain at least 3 L every 3 days. //Prophylaxis. Low-dose Lovenox. Discharge Planning Discharge Planning -If bilateral lower extremity Dopplers are negative for DVT, patient can be discharged to [facility]. -Patient will need drainage of ascites 3-4 L from chronic peritoneal catheter every 3 days -Discharged inpatient rehabilitation, pending cardiology clearance. -Addendum to progress note: Andrea Cheek MD on 02/09/17 @ 11:[address] Kothari in cardiology earlier. Recommended VQ scan. Patient states that he cannot lie flat long enough for VQ scan. Due to chronic kidney disease, would want to avoid contrast load which could cause serious harm. Patient does have elevated RVSP, likely pulmonary hypertension, elevated d-dimer which indicates possible thrombus load, as well as raises the possibility of chronic thromboembolic pulmonary hypertension. Although patient does have fall leading to this admission, expect that with decreased blood pressure meds the likelihood of him syncopizing will be much less. Due to his combined stroke risk from atrial fibrillation, as well as embolic risk from venous thromboembolic disease, I decided to continue him on warfarin. Patient is a fall risk nonetheless, and in the interim, would recommend bridging on Lovenox prophylactic dose until INR is therapeutic. Pt Condition on Discharge: Good Discharge Disposition: Disch w/ Home Health Serv Discharge Time: > 30 minutes Discharge Instructions DIET: Follow Instructions for: As Tolerated, No Restrictions, Renal Failure Diet Speech Therapy-Diet Recommends: Regular Additional Diet Instructions: with nepro TID Activities you can perform: Regular-No Restrictions Other Activity Instructions: walk with assist. patient is supposed to have cervical collar for 4 weeks but is refusing. Follow up Referrals: Cardiology - 1 Week with Vikki Hatfield MD Nephrology - 1 Week Neurosurgery - 4 Weeks with Liam Crocker MD New Orders: X-RAY SPINE CERVICAL COMPLETE - 4 Weeks @ [facility] New Medications: Enoxaparin Inj (Lovenox Inj) 30 Mg/0.3 Ml Syr 30 MG SQ DAILY Blood Clot Prevention Days 7 Ref 0 SYRINGE Sennosides-Docusate Sodium (Senna Plus 8.6-50 mg) 1 Tab Tab 1 TAB PO DAILY Constipation Days 30 TAB Changed Medications: Allopurinol (Allopurinol) 300 Mg Tab 150 MG PO AC DINNER Gout #30 Ref 0 TAB (Changed from: 300 MG) Digoxin (Digoxin) 0.125 Mg Tab 0.125 MG PO DAILY Regulate Heart Beat #30 Ref 0 TAB (Changed from: We) Continued Medications: Cholecalciferol (Vitamin D3) 2,000 Unit Tab 4000 UNITS PO MoTuWeThFrSa Nutritional Supplement #1 Ref 0 BOTTLE Colchicine (Colchicine) 0.6 Mg Tab 0.3 MG PO EVERY OTHER DAY Gout Ref 0 TAB Fosinopril (Fosinopril) 10 Mg Tab 10 MG PO DAILY #30 Ref 0 TAB Pravastatin (Pravastatin) 40 Mg Tab 40 MG PO DAILY Cholesterol Management #30 Ref 0 TAB Warfarin (Warfarin) 2.5 Mg Tab 2.5 MG PO SuMoWeThSa @ 1600 Blood Clot Prevention #30 Ref 0 TAB Warfarin (Warfarin) 2.5 Mg Tab 1.25 MG PO TuFr@1600 Blood Clot Prevention #30 Ref 0 TAB Discontinued Medications: Alprazolam (Xanax) 0.25 Mg Tab 0.25 MG PO BID Anxiety Ref 0 TAB Carvedilol (Carvedilol) 12.5 Mg Tab 12.5 MG PO BID #60 Ref 0 TAB Digoxin (Digoxin) 0.25 Mg Tab 0.25 MG PO MoTuThFrSa Regulate Heart Beat #30 Ref 0 TAB Gemfibrozil (Lopid) 600 Mg Tab 300 MG PO BIDAC Take 30 minutes prior to breakfast and dinner #60 Ref 0 TAB Sotalol (Sotalol) 120 Mg Tab 120 MG PO BID Regulate Heart Beat #60 Ref 0 TAB Andrea Cheek MD Feb 09, 2017 11:35
--- NOTE | 2017-02-09 11:38 | HHI.NPPN ---
Subjective Renal Failure: Chronic, Acute Interval History creatinine is better. Feeling weak. (Stephenie Ames) Review of Systems General Constitutional: Fatigue (Stephenie Ames) Objective Data Data 02/08/17 02/09/17 19:00 07:00 Intake Total 240 ml 600 ml Output Total 500 ml 650 ml Balance -260 ml -50 ml Intake Oral 240 ml 600 ml Output Urine Total 500 ml 650 ml # Bowel Movements 0 3 Vital Signs Date Time Temp Pulse Resp B/P Pulse Ox O2 Delivery O2 Flow Rate FiO2 02/09/17 09:31 96.3 74 20 107/65 97 02/09/17 08:55 95 Nasal Cannula 2.00 02/09/17 04:00 96.1 75 18 103/66 98 02/09/17 00:00 96.7 75 18 96/58 94 02/08/17 23:10 74 02/08/17 21:58 98 Nasal Cannula 3.00 02/08/17 20:00 96.4 75 18 103/64 98 02/08/17 16:00 96.5 73 18 102/61 97 02/08/17 12:00 98.2 71 20 97/48 98 (Stephenie Ames) -: 02/09/17 0730 02/09/17 0730 Imaging Last Impressions Chest X-Ray 02/08/17 0000 Signed Impressions: Service Date/Time: Wednesday, February 08, 2017 06:56 - CONCLUSION: Stable cardiomegaly and congestive heart failure. Stable left basilar atelectasis. Maria R Doyle MD Cervical Spine X-Ray 02/06/17 0000 Signed Impressions: Service Date/Time: Monday, February 06, 2017 11:33 - CONCLUSION: 1. There is a small fracture off the anterior endplate of C4 this is unchanged from previous exam. 2. D5/6 level is fused. 3. Advanced degenerative changes at C6/7. Domingo Middleton MD Pelvis X-Ray 02/04/171 Signed Impressions: Service Date/Time: January 00:33 - CONCLUSION: No obvious fractures. Prashanth Ca MD Head CT 02/04/17 2341 Signed Impressions: Service Date/Time: January 01:01 - CONCLUSION: No acute disease. Prashanth Ca MD Cervical Spine CT 02/04/17 [id number] Signed Impressions: Service Date/Time: January 01:01 - CONCLUSION: There is an acute teardrop fracture of the anterior-inferior corner of the C4 vertebral body. There is no loss of vertebral body height. There is questionable relative widening of the C4-5 facet joints right greater than left. Associated prevertebral soft tissue swelling. Prashanth Ca MD Tubes & Lines Comment ascites drain (Stephenie Ames [address]. RO[address] SUPERVISOR) Physical Exam General Appearance: Well Developed, No Acute Distress, Comfortable Appearance Remarks scattered facial abrasions (Stephenie Ames [address]. RO[address] SUPERVISOR) Neck Neck Exam: Neck Supple (Stephenie Ames [address]. [address] SUPERVISOR) Pulmonary Resp Exam: Clear Bilaterally, Breath Sounds Equal (Henok Ameson [address]. RO[address] SUPERVISOR) Cardiology CV Exam: Regular, Normal Sinus Rhythm, Good Perfusion (Stephenie Ames [address] SUPERVISOR) Gastrointestinal/Abdomen GI Exam: Soft, Non-Tender, Bowel Sounds Present GI Remarks ascites with drain (Stephenie Ames [address] SUPERVISOR) Genitourinary Exam: Clear Urine (Stephenie Ames [address] SUPERVISOR) Musculoskeletal MS Exam: Joints Intact, Normal Tone, Unable to Ambulate (Henok Ameson [address] SUPERVISOR) Integumentary Skin Exam: Warm, Dry (Henok Ameson [address] SUPERVISOR) Extremeties Extremities Exam: No Edema, Pedal Pulses Palpable (Stephenie Ames [address]. [address] SUPERVISOR) Neurologic Neuro Exam: Awake, Oriented (Stephenie Ames [address] SUPERVISOR) Assessment/Plan Discussed Condition With: Patient Problem List: (1) Acute renal failure superimposed on stage 3 chronic kidney disease Plan: baseline creatinine 1.38, GFR 50 NEEL may be prerenal due to dehydration, renal function has improved no electrolyte concerns remove mendez today, non oliguric off IVF stable from renal perspective (2) Fracture of cervical vertebra without spinal cord injury Plan: non surgical management he is in [place] collar, but has removed it at the time of my exam fall precautions (3) Hyponatremia Plan: start fluid restriction (4) Ascites Plan: due for draining tomorrow took 3L on 02/07 (Stephenie Ames) Plan patient was seen and examined. Renal function is stable. Needs fluid restriction for management of hyponatremia. (Trent Best MD) Problem Qualifiers (1) Fracture of cervical vertebra without spinal cord injury: Qualified Code: S12.9XXA - Fracture of cervical vertebra without spinal cord injury, initial encounter Stephenie Ames Feb 09, 2017 11:37 Trent Best MD Feb 10, 2017 14:33
[2017-02-09 12:21] VITALS: BP 96/63; PULSE 87; RESP 20; TEMP 95.9; O2SAT 94
--- NOTE | 2017-02-09 12:49 | RADRPT ---
EXAM DATE/TIME: 02/09/2017 10:36 [facility] COMPARISON: No previous studies available for comparison. INDICATIONS : Bilateral leg swelling and pain. MEDICAL HISTORY : Hypercholesterolemia. Hypertension. Syncope. Gout. CAD. Blood transfusion. SURGICAL HISTORY : Pacemaker. Esophagus surgery. ENCOUNTER: Initial ACUITY: 1 day PAIN SCORE: 0/10 LOCATION: Bilateral legs. TECHNIQUE: Venous ultrasound of the left and right leg was performed from the inguinal ligament to the proximal calf. Real-time, color Doppler and spectral tracing, compression and augmentation techniques were us ed. FINDINGS: RIGHT LEG: There is normal compressibility of the deep venous system from the inguinal region to the proximal ca lf. No echogenic clot is seen in the lumen of the common femoral, femoral, popliteal, and posterior tibial veins. There is a normal response of the venous system to proximal and distal augmentation an d respiration. LEFT LEG: There is normal compressibility of the deep venous system from the inguinal region to the proximal ca lf. No echogenic clot is seen in the lumen of the common femoral, femoral, popliteal, and posterior tibial veins. There is a normal response of the venous system to proximal and distal augmentation an d respiration. CONCLUSION: There is normal compressibility of the deep venous system from the inguinal region to the proximal ca lf. No echogenic clot is seen in the lumen of the common femoral, femoral, popliteal, and posterior tibial veins. There is a normal response of the venous system to proximal and distal augmentation an d respiration. Malick Middleton MD FACR. Malick Middleton MD FACR on February 09, 2017 at 12:46 Board Certified Radiologist. This report was verified electronically.
--- NOTE | 2017-02-09 13:54 | EKG ---
Date Performed: 02/08/2017 Time Performed: 11:30:35 PTAGE: 77 years EKG: ELECTRONIC VENTRICULAR PACEMAKER Compared to prior tracing no significant change, PREVIOUS TRACING : 02/08/2017 06.36 DOCTOR: Yang Jones Interpretating Date/Time 02/09/2017 13:54:03
[2017-02-10] MEDS ORDERED: PANTOPRAZOLE SOD 40 MG DELAYED RELEASE TAB PO SCH (09:00)
--- NOTE | 2017-02-10 12:59 | EKG ---
Date Performed: 02/08/2017 Time Performed: 18:08:43 PTAGE: 77 years EKG: ELECTRONIC VENTRICULAR PACEMAKER ABNORMAL RHYTHM ECG PREVIOUS TRACING : 02/08/2017 11.30 Compared to prior tracing no significant change DOCTOR: Yang Jones Interpretating Date/Time 02/10/2017 12:58:33
[2017-02-17] MEDS ORDERED: DIGO0.12 PO (15:41)
[2017-02-17] MEDS ORDERED: ULTR50TA5 PO (15:41)
[2017-02-17] MEDS ORDERED: ALPR.25 PO (15:41)
[2017-02-17] MEDS ORDERED: FURO20TA PO (15:41)
[2017-02-17] MEDS ORDERED: WARF-18 PO ×2 (15:41)
[2017-02-17] MEDS ORDERED: ALLO300 PO (15:41)
[2017-02-17] MEDS ORDERED: VITA200012 PO (15:41)
[2017-02-17] MEDS ORDERED: SENN1TAB PO (15:41)
[2017-02-17] MEDS ORDERED: PRAV40TA2 PO (15:41)
== END 2017-02-09 14:28 | DRG 552 ==
LOC: NEPC 23:34 → NEDA 02-05 03:11 → N05A 02-05 21:16
PROVIDERS: ADMIT Internal Medicine; ATTEND Internal Medicine
DX: S12.300A Unspecified displaced fracture of fourth cervical vertebra, initial encounter for closed fracture (principal); N17.9 Acute kidney failure, unspecified; R64 Cachexia; R18.8 Other ascites; I42.0 Dilated cardiomyopathy; I27.2 Other secondary pulmonary hypertension; E87.1 Hypo-osmolality and hyponatremia; N18.3 Chronic kidney disease, stage 3 (moderate); J98.11 Atelectasis; I50.9 Heart failure, unspecified; K74.60 Unspecified cirrhosis of liver; E87.5 Hyperkalemia; E86.0 Dehydration; I48.91 Unspecified atrial fibrillation; I12.9 Hypertensive chronic kidney disease with stage 1 through stage 4 chronic kidney disease, or unspecified chronic kidney disease; E78.00 Pure hypercholesterolemia, unspecified; E78.5 Hyperlipidemia, unspecified; I25.10 Atherosclerotic heart disease of native coronary artery without angina pectoris; W18.30XA Fall on same level, unspecified, initial encounter; Y92.239 Unspecified place in hospital as the place of occurrence of the external cause; Y99.9 Unspecified external cause status; Z95.810 Presence of automatic (implantable) cardiac defibrillator; M10.9 Gout, unspecified; F41.9 Anxiety disorder, unspecified; Z88.5 Allergy status to narcotic agent; S00.81XA Abrasion of other part of head, initial encounter; R79.1 Abnormal coagulation profile; Z79.01 Long term (current) use of anticoagulants; Z87.891 Personal history of nicotine dependence; I87.8 Other specified disorders of veins; R55 Syncope and collapse; Z91.81 History of falling; R09.1 Pleurisy; E88.09 Other disorders of plasma-protein metabolism, not elsewhere classified; Y93.01 Activity, walking, marching and hiking; K42.9 Umbilical hernia without obstruction or gangrene; R41.0 Disorientation, unspecified; T50.905A Adverse effect of unspecified drugs, medicaments and biological substances, initial encounter; Y92.9 Unspecified place or not applicable
CPT/HCPCS: 36600; 51702; 70450; 71010; 72040; 72125; 72170; 80048; 80053; 80069; 80162; 81001; 82550; 82552; 82805; 83605; 83880; 84484; 85025; 85379; 85610; 85730; 87040; 93005; 93306; 93970; 94150; 94667; C9113; J1650; L0150; L0172